=== PATIENT | female | born 1945 ===

== ENCOUNTER 2025-06-06 12:31 | Emergency (ER) | payer MEDICARE, SELFPAY ==
[2025-06-06] VITALS (49 sets, daily range): BP systolic 102–144; BP diastolic 45–75; PULSE 57–70; RESP 12–18; O2SAT 93–98
--- NOTE | ~2025-06-06 | CT_ITS ---
EXAMINATION: CT diagnostic chest wo con DATE: 06/06/2025 18:58 ELECTRONIC INSTALLER INDICATION: Airspace disease TECHNIQUE: Computed tomographic angiography (CTA) of the chest was performed with 100 mL Omnipaque-350 intravenous contrast. The dose-length product was 178.52 mGy-cm. Maximum intensity projection 3D-reconstructions of the aorta and other arteries were constructed by the technologist on a separate workstation. COMPARISON: None. FINDINGS: There is extensive atherosclerosis and ectasia of the aorta. Borderline heart size. No significant pleural or pericardial effusion. No thoracic lymphadenopathy. There is dependent atelectasis. Emphysema. No suspicious pulmonary nodules or masses. No focal nodules are identified corresponding to the area of nodularity seen on chest x-ray. This likely represents prominent nipple shadow. There is atherosclerosis of the aorta and coronary arteries. In the upper abdomen there is an infrarenal abdominal aortic aneurysm partially visualized suggestion of dissection. Aneurysm measures approximately 5.4 cm. Status post cholecystectomy. There is a gastric tube in the gastric lumen. IMPRESSION: 1. Bibasilar dependent atelectasis. 2: Infrarenal abdominal aortic aneurysm measuring 5.4 cm with probable associated dissection. This is incompletely visualized. Reviewed, dictated and finalized at location O. TRONIC INSTALLER IMPRESSION: 1. Bibasilar dependent atelectasis. 2: Infrarenal abdominal aortic aneurysm measuring 5.4 cm with probable associ ated dissection. This is incompletely visualized.
--- NOTE | ~2025-06-06 | CT_ITS ---
CTA chest abdomen pelvis HISTORY:eval AAA with dissection . COMPARISON: None. TECHNIQUE: Following the noncontrasted plate preparer, axial images of the chest abdomen and pelvis were obtained following infusion of 100 cc of Isovue 370. Post- processing on an independent workstation was performed to reconstruct MIP images for evaluation of the thoracic vasculature. FINDINGS: There is no pulmonary embolism, aortic dissection, thoracic aneurysm or pericardial fluid. Enlarged pulmonary trunk measures 3.7 cm in medial to lateral dimension. There is fusiform aneurysmal dilatation of the infrarenal abdominal aorta measuring 5.9 cm in medial to lateral by 5.1 cm in AP dimension. There is a dissection flap seen along the left anterior margin. There is vascular calcification at the origin of the celiac and SMA as well as the renal arteries with no significant stenosis. The iliac arteries are patent. The lung parenchyma is clear. No pleural effusion or pneumothorax is noted. There is no axillary, mediastinal or hilar adenopathy. The liver parenchyma is unremarkable. No intrahepatic mass or ductal dilatation is evident. The gallbladder is unremarkable. The pancreas and spleen are normal in appearance. The adrenal glands are symmetric in size. The kidneys demonstrate symmetric uptake and excretion of contrast. No cystic mass is evident. There is no solid mass. There is no hydronephrosis. There is marked stool retention in the rectum consistent with constipation. There is colonic diverticulosis without evidence of acute diverticulitis. Percutaneous gastric tube is noted and is in place. There are no bowel obstruction. The bladder and rectum are normal. No free intraperitoneal fluid or air is evident. There is no significant retroperitoneal lymphadenopathy. The aorta, visceral vessels and renal arteries demonstrate normal caliber and patency. The lower thoracic and lumbar vertebrae are in normal alignment. IMPRESSION: Aneurysmal dilatation of the infrarenal abdominal aorta measuring up to 5.9 cm with questionable dissection flap extending along the left anterior margin. There is no hemodynamically significant stenosis. Enlarged pulmonary trunk is noted measuring 3.7 cm. There is no pulmonary embolism, aortic dissection, pericardial fluid or thoracic aneurysm. There is constipation noted. All CT scans at this facility are performed using low dose modulation techniques as appropriate to perform exam including the following: automated exposure control; use of iterative reconstruction technique; adjustment of the mA and/or kV according to patient size (this includes techniques or standardized protocols for targeted exams where dose is matched to indication/reason for exam). Reviewed, dictated and finalized at location S. APEUTIC RADIOLOGIST IMPRESSION: Aneurysmal dilatation of the infrarenal abdominal aorta measuring up to 5.9 cm with questionable dissection flap extending along the left anterior margin. The re is no hemodynamically significant stenosis. Enlarged pulmonary trunk is noted measuring 3.7 cm. There is no pulmonary embolism, aortic dissection, pericardial fluid or thoraci c aneurysm. There is constipation noted. All CT scans at this facility are performed using low dose modulation techniqu es as appropriate to perform exam including the following: automated exposure c ontrol; use of iterative reconstruction technique; adjustment of the mA and/or kV according to patient size (this includes techniques or standardized protocol s for targeted exams where dose is matched to indication/reason for exam).
--- NOTE | ~2025-06-06 | XR_ITS ---
Examination: XR chest 1V portable Clinical History: generalized weakness Comparison: None Technique: Portable AP Findings: Right permacath. Cardiomegaly. Mildly increased interstitial markings. 2 right basilar rounded opacities. No acute bony abnormality. IMPRESSION: 1. Mild interstitial pulmonary edema and/or pneumonitis. 2. Right basilar airspace disease or rounded opacities not excluded. Recommend short interval follow-up x-rays and/or CT chest. Reviewed, dictated and finalized at location R. RAL OFFICE WORKER
--- NOTE | ~2025-06-06 | CT_ITS ---
EXAMINATION: CT brain wo con DATE: 06/06/2025 18:08 INDICATION: Altered mental status TECHNIQUE: Computed tomography (CT) of the head was performed without intravenous contrast. The dose-length product was 605.33 mGy-cm. Automated exposure control and iterative reconstruction technique were employed. COMPARISON: None FINDINGS: There is a geographic area of hypodensity in the right basal ganglia, thalamus and parietal lobe, most likely an acute or subacute infarction. Underlying mass less favored although not excluded. No ventriculomegaly or midline shift. Basilar cisterns are patent. There are scattered moderate pe riventricular and subcortical white matter changes, most likely related to small vessel ischemic disease (microangiopathy). Paranasal sinuses and mastoids are pneumatized. No depressed skull fractures. IMPRESSION: 1. Geographic hypodensity in the right basal ganglia, thalamus and parietal lobe, most likely an acute or subacute infarction. Underlying mass less favored although not excluded. Recommend correlation with MRI with and without contrast.. Reviewed, dictated and finalized at location O. ALES CONSULTANT IMPRESSION: 1. Geographic hypodensity in the right basal ganglia, thalamus and parietal lob e, most likely an acute or subacute infarction. Underlying mass less favored al though not excluded. Recommend correlation with MRI with and without contrast..
--- NOTE | 2025-06-06 12:48 | ECG_ITS ---
Test Date: 2025-06-06 13:05:46 Measurements Intervals [place] Rate: 57 P: 47 MD: 161 QRS: 0 QRSD: 89 T: 46 QT: 441 QTc: 430 Interpretive Statements SINUS BRADYCARDIA No previous ECG available for comparison Electronically Signed On 06-06-2025 13:36:41 STEEL ERECTING PUSHER by Tra Kincaid M.D.
[2025-06-06 13:04] LABS: Hematocrit 27.1 % (37.0-47.0); Hemoglobin 8.5 g/dL (12.0-15.0); Immature Granulocyte Percent A 0.7 % (0-0.5); Lymphocytes Absolute Auto 1.77 K/mm3 (0.9-3.2); Mean Corpuscular HGB Conc 31.4 g/dl (32-36); Mean Corpuscular Hemoglobin 33.2 pg (26-34); Mean Corpuscular Volume 105.9 fl (80-100); Nucleated Red Blood Cells Absolute Auto 0.000 K/mm3 (0.0-0.012); Nucleated Red Blood Cells Perc 0.0 % (0.0-0.2); Platelet Count Result 232 k/mm3 (150-375); Red Blood Count 2.56 M/mm3 (4.2-5.4); White Blood Count 6.8 K/mm3 (4.5-10.0)
[2025-06-06 13:23] LABS: Alanine Aminotransferase 68 U/L (6-35); Albumin Level 3.4 g/dL (3.5-5.1); Alkaline Phosphatase 96 U/L (38-126); Anion Gap 6 mmol/L (4-12); Aspartate Amino Transferase 33 U/L (14-36); Bilirubin,Total 0.5 mg/dL (0.2-1.3); Blood Urea Nitrogen 34 mg/dL (7-17); Calcium 8.2 mg/dL (8.4-10.2); Carbon Dioxide 31 mmol/L (22-30); Chloride 98 mmol/L (98-107); Estimated Glomerular Filt Rate 17; Glucose 96 mg/dL (65-110); Potassium 4.0 mmol/L (3.4-5.0); Sodium 135 mmol/L (137-145); Total Protein 6.0 g/dL (6.3-8.2)
[2025-06-06 13:40] LABS: Macrocytosis 1+ (NORMAL); Ovalocytes 1+
[2025-06-06 13:41] LABS: Anisocytosis 1+; Schistocytes None Seen
[2025-06-06 14:16] LABS: Add Urine Microscopic? YES; Appearance Urine Clear (Clear); Glucose Urine UA Negative (Negative); Leukocyte Esterase Ur Trace LEU/UL (Negative); Nitrate Urine Negative (Negative); Non Pathogenic Casts 0-2; Specific Grav Ur 1.006 (1.001-1.035)
--- NOTE | 2025-06-06 16:18 | PC.NURSE ---
Pt was wanting to call her daughter, but pt's cell phone locked out due to pt not remembering passcode. This RN called pt's daughter and updated her on current results/status. Daughter provided passcode to pt's phone, RN reminded pt of this and RN charged pt's phone as well. Daughter, Yolette, wants to be called with any updates. Pt continues to deny any complaints, call light in reach, pt demonstrates use of call light.
--- NOTE | 2025-06-06 18:43 | ED.GENADULT ---
HPI - General Adult General Chief complaint: Weakness Stated complaint: weakness Time Seen by Provider: 06/06/25 17:06 History of Present Illness HPI narrative: 80-year-old female presenting via EMS from [facility] with weakness and lethargy. Patient states she was feeling very tired and could not stay awake. 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 Patient denies chest pain, shortness of breath, abdominal pain, fevers/chills. Related Data Home Medications ?Medication ?Instructions ?Recorded ?Confirmed ?Last Taken ?Type acetaminophen 325 mg capsule 650 mg feeding tube Q6H PRN fever 05/25/25 05/28/25 Unknown History or pain albuterol sulfate 90 mcg/actuation 2 puff inhalation Q4H PRN 05/25/25 05/25/25 Unknown History aerosol inhaler (Ventolin HFA) shortness of breath or wheezing budesonide-formoterol HFA 80 2 puff inhalation Q12H 05/25/25 05/28/25 Unknown History mcg-4.5 mcg/actuation aerosol inhaler carvedilol 25 mg tablet 25 mg feeding tube BID 05/25/25 05/25/25 Unknown History diazepam 5 mg tablet (Valium) 5 mg feeding tube DAILY 05/25/25 05/25/25 Unknown History gabapentin 100 mg capsule 100 mg feeding tube HS 05/25/25 05/25/25 Unknown History lidocaine 5 % topical patch 1 patch topical DAILY 05/25/25 05/25/25 Unknown History polyethylene glycol 3350 17 gram 17 g feeding tube DAILY 05/25/25 05/25/25 Unknown History oral powder packet (Miralax) pregabalin 50 mg capsule 50 mg feeding tube TID 05/25/25 05/25/25 Unknown History vitamin B complex-vitamin C-folic 1 tablet feeding tube DAILY 05/25/25 05/25/25 Unknown History acid 0.8 mg tablet (Renal Vitamin) Allergies Allergy/AdvReac Type Severity Reaction Status Date / Time acetaminophen (From Vicodin) Allergy Intermediate Vomiting Verified 05/25/25 16:09 hydrocodone (From Vicodin) Allergy Intermediate Vomiting Verified 05/25/25 14:49 aspirin Allergy Mild GI Verified 05/25/25 14:49 discomfort naproxen (From Aleve) Allergy Mild Rash Verified 05/25/25 14:49 NSAIDS (Non-Steroidal Allergy Mild Rash Verified 05/25/25 14:49 Anti-Inflamma Pdbvarz-TLX-IgP Reductase Allergy Mild GI Verified 05/25/25 14:49 Inhibitor discomfort amlodipine base AdvReac Intermediate Hypertensio Uncoded 05/25/25 14:49 n Review of Systems Review of Systems: All systems reviewed & are unremarkable except as noted in HPI and below PMFSH Past Medical History Medical History (Updated 06/07/25 @ 01:48 by DESTIN Sorenson) Anemia in chronic kidney disease, 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, on chronic dialysis COPD (chronic obstructive pulmonary disease) Gait abnormality Neuropathy HTN (hypertension) Surgical History Surgical History (Updated 05/27/25 @ 09:23 by Manuel Stark MD) S/P ACL reconstruction S/P dialysis catheter insertion S/P percutaneous endoscopic gastrostomy (PEG) tube placement S/P laparoscopic cholecystectomy S/P cervical spinal fusion Family History Family History (Updated 05/27/25 @ 09:25 by Manuel Stark MD) Mother Heart disease Father Parkinson disease Social History Social History Tobacco type: cigarettes Alcohol intake: never Substance use: never Substance use type: does not use Lack of Transportation: No Lack of Food: Never True Current Housing: I Have Housing Concerned About Future Housing: No Difficulty Paying Gas/Electric Bills: No Difficulty Paying for Meds: No Currently Unemployed: No Education: High School Diploma/GED Difficulty w/ Childcare or Family Care: No Spiritual care concerns: No Exam Narrative: GENERAL: Well-appearing, well-nourished, and in no acute distress. HEAD: Normocephalic, atraumatic. EYES: PERRLA and EOMI. ENT: Nares clear, no rhinorrhea or epistaxis. Mucous membranes moist. Oropharynx without tonsillar hypertrophy exudate or other lesions. Bilateral TMs pearly lee non-bulging NECK: Supple. No adenopathy or masses. No carotid bruits or JVD CHEST: Clear to auscultation. No respiratory distress. No wheezes rales or rhonchi HEART: Regular rate and rhythm. No murmur heard. Normal peripheral pulses. ABDOMEN: Soft, nontender, nondistended, normal active bowel sounds. EXTREMITIES: Normal range of motion. No edema. SKIN: Warm, dry, no rash. NEURO: Left side hemiparesis. Alert and oriented x3. Right side strength 5/5 and full ROM. Unilateral finger to nose intact. PSYCH: Normal mood and affect Course Vital Signs Vital signs: Vital Signs Pulse Rate 57 L 06/06/25 12:32 Respiratory Rate 14 06/06/25 12:32 Blood Pressure 105/55 L 06/06/25 12:32 Pulse Oximetry 97 06/06/25 12:32 Oxygen Delivery Nasal Cannula 06/06/25 12:32 Oxygen Flow Rate 2 06/06/25 12:32 Pulse Rate 64 06/06/25 17:03 Respiratory Rate 14 06/06/25 17:03 Blood Pressure 124/56 L 06/06/25 17:03 Pulse Oximetry 94 06/06/25 14:30 Oxygen Delivery Nasal Cannula 06/06/25 12:32 Oxygen Flow Rate 2 06/06/25 12:32 Medical Decision Making MDM Narrative Medical decision making narrative: 80-year-old female presenting via EMS from [facility] with weakness and lethargy. Patient states she was feeling very tired and could not stay awake earlier so the facility called EMS. Facility also noted that her oxygen saturations have been dropping intermittently. 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 Patient denies chest pain, shortness of breath, abdominal pain, fevers/chills. Upon my initial assessment, patient endorses that she is feeling much better and no longer expresses fatigue. Patient's right-sided exam was within normal limits including 5/5 strength and full range of motion. No facial droop. Labs show macrocytic anemia and patient endorses that this is chronic and being monitored closely by her facility. CT brain demonstrated the previous infarct but no new CVA. CXR ordered for intermittent oxygen desaturations revealed mild interstitial pulmonary edema and/or pneumonitis and right basilar airspace disease or rounded opacities not excluded with recommendation for f/u imaging. CT chest demonstrated bibasilar dependent atelectasis and an infrarenal abdominal aortic aneurysm measuring 5.4 cm with probable associated dissection. CTA demonstrated aneurysmal dilatation of the infrarenal abdominal aorta measuring up to 5.9 cm with questionable dissection flap extending along the left anterior margin with no hemodynamically significant stenosis; an enlarged pulmonary trunk is noted measuring 3.7 cm; and there is no pulmonary embolism, aortic dissection, pericardial fluid or thoracic aneurysm. Patient was aware of the aneurysm and follows with Dr. Terrell Reyes at [facility] for monitoring. Contacted [facility] vascular surgery and spoke to the on-call physician Dr. Tracy who stated that the patient did not need vascular surgery at this time. Then spoke to the hospitalist Dr. Weiner at [facility] hospital who accepted the patient. Patient remained stable throughout her stay. She is sitting comfortably and being monitored closely until transfer. Medical Records Medical records reviewed: Yes I reviewed the external patient's medical records. Vital Signs Vital Signs: Vital Signs Pulse Rate 57 L 06/06/25 12:32 Respiratory Rate 14 06/06/25 12:32 Blood Pressure 105/55 L 06/06/25 12:32 Pulse Oximetry 97 06/06/25 12:32 Oxygen Delivery Nasal Cannula 06/06/25 12:32 Oxygen Flow Rate 2 06/06/25 12:32 Pulse Rate 64 06/06/25 17:03 Respiratory Rate 14 06/06/25 17:03 Blood Pressure 124/56 L 06/06/25 17:03 Pulse Oximetry 94 06/06/25 14:30 Oxygen Delivery Nasal Cannula 06/06/25 12:32 Oxygen Flow Rate 2 06/06/25 12:32 Lab Data Lab results reviewed: Yes I reviewed the patient's lab results. 06/06/25 12:59 06/06/25 12:59 Labs: Lab Results 06/06/25 06/06/25 Range/Units 12:59 13:45 WBC 6.8 (4.5-10.0) K/mm3 RBC 2.56 L (4.2-5.4) M/mm3 Hgb 8.5 L (12.0-15.0) g/dL Hct 27.1 L (37.0-47.0) % MCV 105.9 H (80-100) fl MCH 33.2 (26-34) pg MCHC 31.4 L (32-36) g/dl RDW 18.5 H (11.5-14.5) % Plt Count 232 (150-375) k/mm3 MPV 10.3 (7.4-10.4) fl Immature Gran % (Auto) 0.7 H (0-0.5) % Neut % (Auto) 54.2 (45.5-73.1) % Lymph % (Auto) 26.2 (18.3-44.2) % [place] % (Auto) 18.0 H (2.6-8.5) % Eos % (Auto) 0.6 (0-4.4) % Baso % (Auto) 0.3 (0.2-1.2) % Lymph # (Auto) 1.77 (0.9-3.2) K/mm3 [place] # (Auto) 1.2 H (0.1-0.6) K/mm3 Eos # (Auto) 0.0 (0-0.3) K/mm3 Baso # (Auto) 0.0 (0.0-0.1) K/mm3 Abs Immat Gran (auto) 0.05 H (0.00-0.031) K/mm3 Absolute Neuts (auto) 3.7 (1.3-6.7) K/mm3 Absolute Nucleated RBC 0.000 (0.0-0.012) K/mm3 Band Neutrophils % Not Reportable Nucleated RBC % 0.0 (0.0-0.2) % Platelet Estimate Adequate (Adequate) Anisocytosis 1+ Macrocytosis 1+ (NORMAL) Ovalocytes 1+ Schistocytes None seen Sodium 135 L (137-145) mmol/L Potassium 4.0 (3.4-5.0) mmol/L Chloride 98 (98-107) mmol/L Carbon Dioxide 31 H (22-30) mmol/L Anion Gap 6 (4-12) mmol/L BUN 34 H D (7-17) mg/dL Creatinine 2.65 H (0.7-1.0) mg/dL Estim Creat Clear Calc Not Reportable Estimated GFR 17 L (59 - ) Glucose 96 (65-110) mg/dL Calcium 8.2 L (8.4-10.2) mg/dL Total Bilirubin 0.5 (0.2-1.3) mg/dL AST 33 (14-36) U/L ALT 68 H (6-35) U/L Alkaline Phosphatase 96 (38-126) U/L Total Protein 6.0 L (6.3-8.2) g/dL Albumin 3.4 L (3.5-5.1) g/dL Urine Color Yellow (Yellow) Urine Appearance Clear (Clear) Urine pH 8.5 (5.0-9.0) Ur Specific [place] 1.006 (1.001-1.035) Urine Protein 2+ H (Negative) mg/dL Urine Glucose (UA) Negative (Negative) mg/dL Urine Ketones Negative (Negative) mg/dL Ur Blood (Man) Negative (Negative) Urine Nitrate Negative (Negative) Urine Bilirubin Negative (Negative) Urine Urobilinogen 0.2 (<2.0) mg/dL Leukocyte Esterase Rfl Trace H (Negative) WINNIE/UL Urine RBC 0-2 (0-2) /hpf Urine WBC 0-5 (0-3) /hpf Ur Squamous Epith Cells Occasional (Few) /hpf Urine Bacteria None seen /hpf Urine Casts 0-2 Imaging Data Attestation: I personally reviewed and interpreted this imaging study as follows: Radiologist's impression: ITS Impressions Chest X-Ray 06/06/25 13:32 IMPRESSION: 1. Mild interstitial pulmonary edema and/or pneumonitis. 2. Right basilar airspace disease or rounded opacities not excluded. Recommend short interval follow-up x-rays and/or CT chest. Head CT 06/06/25 18:17 IMPRESSION: 1. Geographic hypodensity in the right basal ganglia, thalamus and parietal lobe, most likely an acute or subacute infarction. Underlying mass less favored although not excluded. Recommend correlation with MRI with and without contrast.. Chest CT 06/06/25 18:58 IMPRESSION: 1. Bibasilar dependent atelectasis. 2: Infrarenal abdominal aortic aneurysm measuring 5.4 cm with probable associated dissection. This is incompletely visualized. Chest/Abdomen/Pelvis CTA 06/06/25 20:28 IMPRESSION: Aneurysmal dilatation of the infrarenal abdominal aorta measuring up to 5.9 cm with questionable dissection flap extending along the left anterior margin. There is no hemodynamically significant stenosis. Enlarged pulmonary trunk is noted measuring 3.7 cm. There is no pulmonary embolism, aortic dissection, pericardial fluid or thoracic aneurysm. There is constipation noted. All CT scans at this facility are performed using low dose modulation techniques as appropriate to perform exam including the following: automated exposure control; use of iterative reconstruction technique; adjustment of the mA and/or kV according to patient size (this includes techniques or standardized protocols for targeted exams where dose is matched to indication/reason for exam). Discharge Plan Discharge Clinical Impression: Abdominal aortic aneurysm Patient Disposition: Acute Care Hospital Condition: Stable Patient Language: Korean Prescriptions: No Action carvedilol 25 mg tablet 25 mg feeding tube BID Rx Instructions: must administer with a meal/food gabapentin 100 mg capsule 100 mg feeding tube HS albuterol sulfate [Ventolin HFA] 90 mcg/actuation HFA aerosol inhaler 2 puff inhalation Q4H PRN (Reason: shortness of breath or wheezing) diazepam [Valium] 5 mg tablet 5 mg feeding tube DAILY acetaminophen 325 mg capsule 650 mg feeding tube Q6H PRN (Reason: fever or pain) budesonide-formoterol 80-4.5 mcg/actuation HFA aerosol inhaler 2 puff inhalation Q12H lidocaine 5 % adhesive patch,medicated 1 patch topical DAILY Rx Instructions: leave on most painful area for up to 12 hrs polyethylene glycol 3350 [Miralax] 17 gram powder in packet 17 g feeding tube DAILY pregabalin 50 mg capsule 50 mg feeding tube TID Renal Vitamin 0.8 mg tablet 1 tablet feeding tube DAILY Follow-up/Referrals: PHYSICIAN NOT ON STAFF,NONSTAFF [Primary Care Provider]
--- NOTE | 2025-06-06 21:10 | PC.NURSE ---
This RN called pt's daughter, Yolette, and updated daughter on plan to transfer to [facility] for vascular consult. Pt informed as well. Pt continues to deny any pain, remains A&Ox4, on room air. Additional labs obtained and sent. Pt reports her vascular doctor is at [facility] and they have been watching her aneurysm previously for growth. Call light in reach.
--- OUTSIDE RECORDS SUMMARY | 2025-06-06 21:12 | XMS_ITS | Encounter Summary ---
Author Organization [facility] Address [address] [place] [address] Care Team Providers Care Geriatric Physician Name Role Phone Hermelindo Lazar MD Unavailable Odin YEUNG MD, Kevin Nunez Primary Care Provider [phone] Kasie Brown RN Unavailable [phone] Marc CURIEL MD, Ulysses Guerrero Primary Care Provider + Ashleigh Rouse MD Primary Care Provider [phone] Odin YEUNG MD, Francis G Primary Care Provider [phone] Ashleigh Rouse MD Primary Care Provider [phone] Tana Wagner MD Primary Care Provider [phone] Reason for Visit * Reason Onset Date Comments Surgery Scheduling 07/17/2019 Surgery Scheduling 07/17/2019 message relay ed Encounter Details Date Type Department Care Team (Late st Contact Info) Description 07/17/2019 Telephone [facility] Internal Medicine [address] [facility] [address] [place] [address] Kevin Newby III, MD [address] [id number] Surgery Scheduling; Surgery Scheduling (message relayed) Social History Tobacco Use Types Packs/Day Years Used Date Smoking Tobacco: Every Day Cigarettes 0.5 50 Smokeless Tobacco: Never Alcohol Use Standard Drinks/Week Comments Yes 0 (1 standard drink = 0.6 oz pur e alcohol) social AUDIT-C Answer Date Recorded Frequency of Alcohol Consumption Never 07/19/2019 Average Number of Drinks Not on file 019 Frequency of Binge Drinking Not on file 07/01 Comments No Sex and Gender Information Value Date Recorded Sex Assigned at Not on file Legal Sex Female 9:43 AM CDT Gender Identity Not on file Sexual Orientation Not on file documented as of this encounter Functional Status documented as of this encounter Miscellaneous Notes * Telephone Encounter - Souleymane Krishnamurthy - 07/17/2019 2:57 PM CST Contact made w/Liz in [facility] General surgery, message below provided: Message from Dr. Newby It looks like I have an appointment with patient tomorrow. I will discuss with her then. I am unable to recommend for or against performing bronchoscopy for these lesions. I will place a referral to supply chain procurement manager who can make such a determination. ?? Much thanks, ?? SUNI Hill verbalized understanding and stated she would let the surgeon know TATION MAINTENANCE TECHNICIAN * Telephone Encounter - Kevin Newby III, MD - 07/17/2019 8:46 AM CST It looks like I have an appointment with patient tomorrow. I will discuss with her then. I am unable to recommend for or against performing bronchoscopy for these lesions. I will place a referral to supply chain procurement manager who can make such a determination. Much thanks, GW TATION MAINTENANCE TECHNICIAN * Telephone Encounter - Souleymane Krishnamurthy - 07/17/2019 8:15 AM CST Liz pendleton/[facility] Surgery called on behalf of Dr. Kennedy Richardson to see if the provider wanted a Psychiatric Tech to per a bronchoscope during the laparoscopic colosectomy. Liz stated that they are looking to schedule the surgery for August or September, but wanted to confirm with the provider r egarding the bronchoscope before scheduling. Liz provided call back number [phone] Message routed to provider for review and assistance TATION MAINTENANCE TECHNICIAN documented in this encounter Plan of Treatment Upcoming Encounters Date Type Department Care Team (Late st Contact Info) Description 07/01/2025 1:30 PM SUBSTATION MAINTENANCE TECHNICIAN Office Visit [facility] - Neurology [address] [facility] [place] [phone] Liz Zelaya PA-C [address] [facility] [address] [place] [phone] 07/03/2025 1:00 PM SUBSTATION MAINTENANCE TECHNICIAN Office Visit [facility] - Orthopedic Surgery [address] [facility] [place] [phone] Humberto Carlton MD [address] [place] [address] documented as of this encounter Visit Diagnoses Not on filedocumented in this encounter Additional Health Concerns Infection Onset Date Last Indicated Resolved Time COVID-19 Under Investigation 06/01/2024 06/01/2024 06/01/2024 8:23 PM CDT documented as of this encounter Care Teams Geriatric Physician Relationship Specialty Start Date End Date Kevin Newby III, MD [address] [facility] [address] [place] [phone] PCP - General 06/05/19 07/27/20 [place] [address] [place] [address] [address] [facility] [place] [address] PCP - General Student Resident 07/28/20 10/14/20 Ashleigh Rouse MD [address] [place] [address] PCP - General 10/15/20 03/25/21 Kevin Newby III, MD [address] [place] [address] PCP - General 03/26/21 07/16/21 Ashleigh Rouse MD [address] [place] [address] PCP - General Internal Medicine Geriatric Medicine 07/17/21 08/24/23 Tana Wagner MD [address] [place] [address] PCP - General Internal Medicine Geriatric Medicine 08/25/23 Hermelindo Lzaar MD [address] [phone] Obstetrics and Gynecology 01/30/19 Kasie Brown, ROCAEL Livestock FarmworkerSubstation Maintenance Technician 08/16/19 documented as of this encounter
--- OUTSIDE RECORDS SUMMARY | 2025-06-06 21:12 | XMS_ITS | Clinical Summary ---
Author Organization [facility] Administrative Offices Address [address] [place] [phone] Care Team Providers Care Service Parts Driver Name Role Phone Terrell Park MD Primary Care Provider [phone] Social History Tobacco Use Types Packs/Day Years Used Date Smoking Tobacco: Never Assessed Comments Unknown Sex and Gender Information Value Date Recorded Sex Assigned at Not on file Legal Sex Female 1:05 PM CDT Gender Identity Not on file Sexual Orientation Not on file Plan of Treatment Health Maintenance Due Date Last Done Comments DTAP/TDAP/TD VACCINES (1 - Tdap) 1964 ZOSTER VACCINE (1 of 2) 1995 OSTEOPOROSIS SCREENING 2010 RSV VACCINE (60+ or ) (1 - 1-dose 75+ series) 2020 INFLUENZA VACCINE (#1) 2025 8, 06/13/2015, 06/11/2014, Additional history exists PNEUMOCOCCAL VACCINE 50+ YEARS Completed 03/07/2019 , 04/18/2012 Insurance [employer] PPO [facility] Care Teams Service Parts Driver Relationship Specialty Start Date End Date Terrell Park MD [address] [place] [address] PCP - General Internal Medicine 04/11/19
--- OUTSIDE RECORDS SUMMARY | 2025-06-06 21:12 | XMS_ITS | Encounter Summary ---
Author Organization [facility] Address [address] [facility] [place] [address] Care Team Providers Care Rug Dyer Helper Name Role Phone Hermelindo Lazar MD Unavailable [phone] Kasie Brown RN Unavailable [phone] Tana Wagner MD Primary Care Provider [phone] Reason for Visit * Reason Onset Date Comments Question 06/05/2025 Encounter Details Date Type Department Care Team (Late st Contact Info) Description 06/05/2025 Telephone Transitional Care at [address] [address] Rosette Moore MA Question Social History Tobacco Use Types Packs/Day Years Used Date Smoking Tobacco: Every Day Cigarettes 1 63 Smokeless Tobacco: Never Alcohol Use Standard Drinks/Week Comments Not Currently 0 (1 standard drink = 0.6 oz pur e alcohol) quit PHQ-2 Answer Date Recorded Patient Health Questionnaire-2 Score 0 05/19/2025 PRAPARE - Transportation Answer Date Re corded In the past 12 months, has l ack of transportation kept you from medical appointments or from getting medications? No 01/30 In the past 12 months, has l ack of transportation kept you from meetings, work, or from getting things needed for daily living? No 02/24/2025 Housing Stability Vital Sign Answer Bishop e Recorded In the last 12 months, was t here a time when you were not able to pay the mortgage or rent on time? No 02/24/2025 In the past 12 months, how m any times have you moved where you were living? 0 02/24/2025 At any time in the past 12 m [facility], were you homeless or living in a halfway (including now)? No 02/24/2025 AUDIT-C Answer Date Recorded Q1: How often do you have a drink containing alcohol? Never 05/14/2025 Q2: How many drinks containi ng alcohol do you have on a typical day when you are drinking? Patient does not drink Q3: How often do you have si x or more drinks on one occasion? Never 05/14/2025 Overall Financial Resource Strain (CARDIA) Answe r Date Recorded How hard is it for you to pa y for the very basics like food, housing, medical care, and heating? Not very hard 05/14/2025 [facility] - Occupational Stress Questionnaire Answer Date Recorded Do you feel stress - tense, restless, nervous, or anxious, or unable to sleep at night because your mind is troubled all the time - these days? Not at all 05/14/2025 Hunger Vital Sign Answer Date Recorded Within the past 12 months, y ou worried that your food would run out before you got the money to buy more. Never true 05/14/20 25 Within the past 12 months, t he food you bought just didn't last and you didn't have money to get more. Never true 05/14/2025 PRAPARE - Transportation Answer Date Re corded In the past 12 months, has l ack of transportation kept you from medical appointments or from getting medications? No 05/01 In the past 12 months, has l ack of transportation kept you from meetings, work, or from getting things needed for daily living? No 05/14/2025 Housing Stability Vital Sign Answer Bishop e Recorded In the last 12 months, was t here a time when you were not able to pay the mortgage or rent on time? No 05/14/2025 In the past 12 months, how m any times have you moved where you were living? 0 05/14/2025 At any time in the past 12 m [facility], were you homeless or living in a halfway (including now)? 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 Answer Date of Assessment Author No 05/14/2025 6:55 PM JERSEYT Gloria Brian RN * Is person blind or have serious difficulty seeing? Answer Date of Assessment Author No 05/14/2025 6:55 PM Gloria Farias RN * Does person have serious difficulty walking/climbing stairs? Answer Date of Assessment Author No 05/14/2025 6:55 PM Gloria Farias RN * Does person have difficulty dressing/bathing? Answer Date of Assessment Author No 05/14/2025 6:55 PM Gloria Farias RN * Does person have difficulty doing errands alone? Answer Date of Assessment Author No 05/14/2025 6:55 PM Gloria Farias RN documented as of this encounter Mental Status * Does person have difficulty concentrating/remembering/making decisions? Answer Entry Date Author No 05/14/2025 6:55 PM Gloria Farias RN documented in this encounter Miscellaneous Notes * Telephone Encounter - Rosette Moore MA - 06/05/2025 9:49 AM DRAWING FRAME TENDER Called [facility] to check admission status and discharge plan of patient that received BRIDGE referral. Spoke with CAROLINE who stated patient is to discharge 06/17/25. ING FRAME TENDER documented in this encounter Plan of Treatment Upcoming Encounters Date Type Department Care Team (Late st Contact Info) Description 07/01/2025 1:30 PM DRAWING FRAME TENDER Office Visit [facility] - Neurology [address] [place] [address], [place] [address] Liz Zelaya PA-C [address] [facility] [address] [place] [phone] 07/03/2025 1:00 PM DRAWING FRAME TENDER Office Visit [facility] - Orthopedic Surgery [address] [place] [phone] Humberto Carlton MD [address] [place] [address] documented as of this encounter Goals Goal Patient Goal Type Associated Problems Recent Progress Patient-Stated? Author Medication Management General No Whitney Kan, ROCAEL Note: Expected end date: ongoing Interventions: Take all medications as prescribed Let your doctor know right away about any changes in your medications Make sure to request a refill of your medication at least one week prior to your last dose Medication Management General No Whitney Kan, RN Note: Expected end date: ongoing Interventions: Take all medications as prescribed Let your doctor know right away about any changes in your medications Make sure to request a refill of your medication at least one week prior to your last dose Medication Management General No Whitney Kan, RN Note: Expected end date: ongoing Interventions: Take all medications as prescribed Let your doctor know right away about any changes in your medications Make sure to request a refill of your medication at least one week prior to your last dose Medication Management General No Whitney Kan, RN Note: Expected end date: ongoing Interventions: Take all medications as prescribed Let your doctor know right away about any changes in your medications Make sure to request a refill of your medication at least one week prior to your last dose documented as of this encounter Visit Diagnoses Not on filedocumented in this encounter Care Teams Rug Dyer Helper Relationship Specialty Start Date End Date Tana Wagner MD [address] [place] [address] PCP - General Internal Medicine Geriatric Medicine 08/25/23 Hermelindo Lazar MD [address] [facility] [address] [place] [address] Obstetrics and Gynecology 01/30/19 Kasie Brown, RN Motorcycle TechnicianWood Heel Fitter Machine 08/16/19 documented as of this encounter
--- OUTSIDE RECORDS SUMMARY | 2025-06-06 21:12 | XMS_ITS | Encounter Summary ---
Author Organization [facility] Address [address] [facility] [place] [address] Care Team Providers Care Flower Shop Laborer/Designer Name Role Phone Hermelindo Lazar MD Unavailable [phone] Odin YEUNG MD, Kevin Nunez Primary Care Provider [phone] Kasie Brown RN Unavailable [phone] Marc CURIEL MD, Ulysses Guerrero Primary Care Provider + Ashleigh Rouse MD Primary Care Provider Odin YEUNG MD, Francis G Primary Care Provider [phone] Ashleigh Rouse MD Primary Care Provider [phone] Tana Wagner MD Primary Care Provider [phone] Reason for Visit * Reason Onset Date Comments Medication Issue 06/25/2019 hygroton Medication Issue 07/04/2019 message relayed Encounter Details Date Type Department Care Team (Late st Contact Info) Description 06/25/2019 Telephone [facility] General Internal Medicine [address] [address] Kevin Newby III, MD [address] [phone] Medication Issue (hygroton); Medication Issue (message relayed) Social History Tobacco Use Types Packs/Day Years Used Date Smoking Tobacco: Every Day Cigarettes 0.5 50 Smokeless Tobacco: Never Alcohol Use Standard Drinks/Week Comments Yes 0 (1 standard drink = 0.6 oz pur e alcohol) social Comments No Sex and Gender Information Value Date Recorded Sex Assigned at Not on file Legal Sex Female 9:43 AM CDT Gender Identity Not on file Sexual Orientation Not on file documented as of this encounter Miscellaneous Notes * Telephone Encounter - Souleymaen Krishnamurthy - 07/04/2019 4:22 PM CST Contact made with the pt, message below provided: Message from Dr. Araujo I am covering for Dr. Newby. Please call the patient and let her know that if she isn't tolerating the chlorthalidone, then she should discontinue it. She should continue checking her blood pressure at home and keeping a log. If the patient is having any headaches, chest pain, dizziness when her blood pressure is elevated after she stops taking the chlorthalidone, then she should go to the emergency department. She should definitely keep her upcoming appointment ??Dr. Newby on 07/18. If she needsto be seen sooner, she can come to the acute care clinic. Thanks! Pt verbalized she has some dizziness, and chest pain but reports she has gall stones, and is takinga medication that causes dizziness. Pt states she doesn't feel like she needs to go to the ED, but will if her top number goes above 200, reports that it hasn't been that high, and the bottom number has been between 94-101, pulse is good. Closing statement provided DRY FINISHER * Telephone Encounter - Marilyn Araujo DO - 07/03/2019 6:52 PM CST Will advise patient to come stop chlorthalidone. Will continue to monitor BP. Recommend coming to acute care clinic if patient is having symptoms with high blood pressure. Patient is scheduled to seeDr. Newby on 07/18. DRY FINISHER * Telephone Encounter - Souleymane Krishnamurthy - 06/25/2019 3:54 PM CST Pt called to inform the provider that the Hygroton is giving her headaches, makes her pee a lot, and has turned her bowel movements into water. Caller states she has been taking it for 3-4 days nowand her bp was 163/101 today, 176/98 yesterday, and 162/100 that day before that. Pt provided call back number [phone] Message routed to provider for review and assistance DRY FINISHER documented in this encounter Plan of Treatment Upcoming Encounters Date Type Department Care Team (Late st Contact Info) Description 07/01/2025 1:30 PM FOUNDRY FINISHER Office Visit [facility] - Neurology [address] [facility], [place] [phone] Liz Zelaya PA-C [address] [facility] [address] [place] [phone] 07/03/2025 1:00 PM FOUNDRY FINISHER Office Visit [facility] - Orthopedic Surgery [address] [facility] [place] [phone] Humberto Carlton MD [address] [facility] [address] [place] [address] documented as of this encounter Visit Diagnoses Not on filedocumented in this encounter Additional Health Concerns Infection Onset Date Last Indicated Resolved Time COVID-19 Under Investigation 06/01/2024 06/01/2024 06/01/2024 8:23 PM CDT documented as of this encounter Care Teams Flower Shop Laborer/Designer Relationship Specialty Start Date End Date Kevin Newby III, MD [address] [place] [phone] PCP - General 06/05/19 07/27/20 Ulysses Tran II, MD [address] [facility] [place] [address] PCP - General Student Resident 07/28/20 10/14/20 Ashleigh Rouse MD [address] [place] [address] PCP - General 10/15/20 03/25/21 Kevin Newby III, MD [address] [place] [address] PCP - General 03/26/21 07/16/21 Ashleigh Rouse MD [address] OF [facility] [place] [address] PCP - General Internal Medicine Geriatric Medicine 07/17/21 08/24/23 Tana Wagner MD [address] [place] [address] PCP - General Internal Medicine Geriatric Medicine 08/25/23 Hermelindo Lazar MD [address] [facility] [address] [place] [address] Obstetrics and Gynecology 01/30/19 Kasie Brown, ROCAEL Marble FinisherShoe Laster 08/16/19 documented as of this encounter
--- OUTSIDE RECORDS SUMMARY | 2025-06-06 21:12 | XMS_ITS ---
Author Organization [facility] Address [address] [facility] [place] [address] Care Team Providers Care Business Systems Manager Name Role Phone Hermelindo Lazar MD Unavailable [phone] Kasie Brown RN Unavailable [phone] Tana Wagner MD Primary Care Provider [phone] Active Problems Problem Noted Date Diagnosed Date Oropharyngeal dysphagia 05/22/2025 Assessment & Plan (05/25/2025 11:53 AM CDT): Plan PT/OT rec acute rehab F/u Neurology OP Keep SBP <160 PEG (placed 10/20) w TF Continuous: Nepro at 40 ml/hr. F/u w ACS for PEG removal when able. Assessment & Plan (05/24/2025 7:21 AM CDT): Plan PT/OT rec acute rehab F/u Neurology OP Keep SBP <160 PEG (placed 10/20) w TF Continuous: Nepro at 40 ml/hr. F/u w ACS for PEG removal when able. Assessment & Plan (05/23/2025 2:21 PM CDT): Plan PT/OT rec acute rehab F/u Neurology OP Keep SBP <160 PEG (placed 10/20) w TF Continuous: Nepro at 40 ml/hr. F/u w ACS for PEG removal when able. Assessment & Plan (05/22/2025 12:10 PM CDT): Plan PT/OT rec acute rehab F/u Neurology OP Keep SBP <160 PEG (placed 10/20) w TF Continuous: Nepro at 40 ml/hr. F/u w ACS for PEG removal when able. Simple chronic bronchitis 05/22/2025 Assessment & Plan (05/25/2025 11:53 AM CDT): Continue home symbicort F/u Pulm OP for PFT Tobacco cessation discussed Assessment & Plan (05/24/2025 7:21 AM CDT): Continue home symbicort F/u Pulm OP for PFT Tobacco cessation discussed Assessment & Plan (05/23/2025 2:21 PM CDT): Continue home symbicort F/u Pulm OP for PFT Tobacco cessation discussed Assessment & Plan (05/22/2025 12:10 PM CDT): Continue home symbicort F/u Pulm OP for PFT Tobacco cessation discussed Weakness 05/14/2025 Assessment & Plan (05/25/2025 11:53 AM CDT): Plan PT/OT rec acute rehab F/u Neurology OP Keep SBP <160 PEG (placed 10/20) w TF Continuous: Nepro at 40 ml/hr. F/u w ACS for PEG removal when able. Assessment & Plan (05/24/2025 7:21 AM CDT): Plan PT/OT rec acute rehab F/u Neurology OP Keep SBP <160 PEG (placed 10/20) w TF Continuous: Nepro at 40 ml/hr. F/u w ACS for PEG removal when able. Assessment & Plan (05/23/2025 2:21 PM CDT): Plan PT/OT rec acute rehab F/u Neurology OP Keep SBP <160 PEG (placed 10/20) w TF Continuous: Nepro at 40 ml/hr. F/u w ACS for PEG removal when able. Assessment & Plan (05/22/2025 12:10 PM CDT): Plan PT/OT rec acute rehab F/u Neurology OP Keep SBP <160 PEG (placed 10/20) w TF Continuous: Nepro at 40 ml/hr. F/u w ACS for PEG removal when able. Brainstem hemorrhage, nontraumatic 05/14/2025 Thalamic hemorrhage 05/14/2025 Assessment & Plan (05/25/2025 11:53 AM CDT): Plan PT/OT rec acute rehab F/u Neurology OP Keep SBP <160 PEG (placed 10/20) w TF Continuous: Nepro at 40 ml/hr. F/u w ACS for PEG removal when able. Assessment & Plan (05/24/2025 7:21 AM CDT): Plan PT/OT rec acute rehab F/u Neurology OP Keep SBP <160 PEG (placed 10/20) w TF Continuous: Nepro at 40 ml/hr. F/u w ACS for PEG removal when able. Assessment & Plan (05/23/2025 2:21 PM CDT): Plan PT/OT rec acute rehab F/u Neurology OP Keep SBP <160 PEG (placed 10/20) w TF Continuous: Nepro at 40 ml/hr. F/u w ACS for PEG removal when able. Assessment & Plan (05/22/2025 12:10 PM CDT): Plan PT/OT rec acute rehab F/u Neurology OP Keep SBP <160 PEG (placed 10/20) w TF Continuous: Nepro at 40 ml/hr. F/u w ACS for PEG removal when able. Cerebral edema 05/14/2025 Assessment & Plan (05/25/2025 11:53 AM CDT): Plan PT/OT rec acute rehab F/u Neurology OP Keep SBP <160 PEG (placed 10/20) w TF Continuous: Nepro at 40 ml/hr. F/u w ACS for PEG removal when able. Assessment & Plan (05/24/2025 7:21 AM CDT): Plan PT/OT rec acute rehab F/u Neurology OP Keep SBP <160 PEG (placed 10/20) w TF Continuous: Nepro at 40 ml/hr. F/u w ACS for PEG removal when able. Assessment & Plan (05/23/2025 2:21 PM CDT): Plan PT/OT rec acute rehab F/u Neurology OP Keep SBP <160 PEG (placed 10/20) w TF Continuous: Nepro at 40 ml/hr. F/u w ACS for PEG removal when able. Assessment & Plan (05/22/2025 12:10 PM CDT): Plan PT/OT rec acute rehab F/u Neurology OP Keep SBP <160 PEG (placed 10/20) w TF Continuous: Nepro at 40 ml/hr. F/u w ACS for PEG removal when able. Acute respiratory failure with hypoxia Slow transit constipation 02/26/2025 Closed fracture of neck of right femur, initial encounter 02/24/2025 Encounter for post surgical wound check 11/28/19 25 ESRD on dialysis 09/02/2024 Assessment & Plan (05/25/2025 11:53 AM CDT): TTS via [facility] Nephrology follow up Assessment & Plan (05/24/2025 7:21 AM CDT): TTS via [facility] Nephrology consulted Assessment & Plan (05/23/2025 2:21 PM CDT): TTS via [facility] Nephrology consulted Assessment & Plan (05/22/2025 7:38 AM CDT): TTS via [facility] Nephrology consulted 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 Essential (primary) hypertension 05/24/2019 Assessment & Plan (05/25/2025 11:53 AM CDT): Continue carvedilol 25mg bid Assessment & Plan (05/24/2025 7:21 AM CDT): Continue carvedilol 25mg bid Assessment & Plan (05/23/2025 2:21 PM CDT): Continue carvedilol 25mg bid Assessment & Plan (05/22/2025 12:10 PM CDT): Continue carvedilol 25mg bid Diverticulosis of colon 05/04/2019 Current Treatment and Therapy Plans No current plan information found. Past Treatment and Therapy Plans No past plan information found. Lifetime Dose Tracking * Chemical Lifetime Dose Automatic Entry Manual Entr y Dose Length Product 1,873.6 mGy-cm 1,873.6 mGy-cm 0 mG y-cm Resolved Problems Problem Noted Date Diagnosed Date Resolved Date Hypoxia 02/24/2025 02/26/2025 Obesity 07/18/2019 07/18/2019 Chest pain 06/11/2019 07/18/2019
--- OUTSIDE RECORDS SUMMARY | 2025-06-06 21:12 | XMS_ITS | Clinical Summary ---
Author Organization [facility] Address [address] [place] [id number] Phone Care Team Providers Care Cover Mat Machine Operator Name Role Phone Terrell Park MD Primary Care Provider [phone] Allergies Active Allergy Reactions Criticality Noted Date Comments Aspirin 05/24/2019 Codeine 05/24/2019 Meperidine 05/24/2019 Levofloxacin 05/24/2019 Naproxen 05/24/2019 Niacin 05/24/2019 Statins 05/24/2019 Hydrocodone-Acetaminophen 05/24/2019 Medications diazePAM (VALIUM) 5 MG tablet Take 5 mg by mouth every 8 (eight) hours if needed for anxiety Active ezetimibe (ZETIA) 10 MG tablet Take 10 mg by mouth 1 (one) time each day Active metoprolol tartrate (LOPRESSOR) 25 MG tablet Take 25 mg by mouth 2 (two) times a day 1/2 tab bid Active glucosamine-cho ndroitin 500-400 MG tablet Take 1 tablet by mouth 2 (two) times a day Active Hyaluronic Acid-Vitamin C (HYALURONIC ACID PO) Take by mouth daily 2 tabs daily Active Misc Natural Products (LUTEIN VISION BLEND PO) Take 24 mg by mouth daily Active Calcium Citrate-Vitamin D 500-400 MG-UNIT chewable tablet Chew 400 mg daily Active Vitamin Mixture (GERMAN-C PO) Take 500 mg by mouth 2 (two) times a day Active Turmeric Curcumin 500 MG capsule Take 1,500 mg by mouth daily 3 tabs daily Active Multiple Vitamins-Minera ls (ZINC PO) Take 2 mL by mouth daily Active cyanocobalamin (VITAMIN B-12) 1000 MCG tablet Take 100 mcg by mouth 1 (one) time each day Active Magnesium 100 MG tablet Take 120 mg by mouth daily Active acetaminophen (TYLENOL) 325 MG tablet Take by mouth daily 2 tabs daily Active lisinopril (PRINIVIL,ZESTR IL) 20 MG tablet Take 20 mg by mouth 1 (one) time each day Active Active Problems Problem Noted Date Diagnosed Date Essential (primary) hypertension 05/24/2019 Serum creatinine raised 05/24/2019 Family History Medical History Relation Comments Malignant neoplastic disease Brother Diabetes Mother Heart disease Mother Heart disease Sister Malignant tumor of breast Sister Relation Status Comments Brother Mother Sister Social History Tobacco Use Types Packs/Day Years Used Date Smoking Tobacco: Every Day Cigarettes 0.5 57 Smokeless Tobacco: Never Alcohol Use Standard Drinks/Week Comments Never 0 (1 standard drink = 0.6 oz pur e alcohol) AUDIT-C Answer Date Recorded Frequency of Alcohol Consumption Never 05/24/2019 Average Number of Drinks Not on file 019 Frequency of Binge Drinking Not on file 05/02 Comments Unknown Sex and Gender Information Value Date Recorded Sex Assigned at Not on file Legal Sex Female 9:36 AM MDT Gender Identity Not on file Sexual Orientation Not on file Last Filed Vital Signs Vital Sign Reading Time Taken Comments Blood Pressure 180/96 05/31/2019 1:21 PM CDT Man ually Pulse 70 05/31/2019 1:20 PM CDT Temperature - - Respiratory Rate - - Oxygen Saturation - - Inhaled Oxygen Concentration - - Weight 67.1 kg (148 lb) 05/31/2019 1:20 PM CDT Height 152.4 cm (5') 05/31/2019 1:20 PM CDT Body Mass Index 28.9 05/31/2019 1:20 PM CDT Plan of Treatment Health Maintenance Due Date Last Done Comments Pneumococcal PPSV23/PCV13 65 + Years / Low and Medium Risk (2 of 3 - PCV20 or PCV21) 03/07/2020 03/07/2019 Influenza Vaccine (#1) 2025 06/13/2015, 2013 Insurance PM INTERFACED INSURANCE Care Teams Cover Mat Machine Operator Relationship Specialty Start Date End Date Terrell Park MD [address] [facility] [address] [place] [phone] PCP - General 05/08/19
--- OUTSIDE RECORDS SUMMARY | 2025-06-06 21:12 | XMS_ITS | Encounter Summary ---
Author Organization [facility] Address [address] [place] [address] Care Team Providers Care Jet Man Name Role Phone Hermelindo Lazar MD Unavailable [phone] Odin YEUNG MD, Kevin Nunez Primary Care Provider [phone] Kasie Brown RN Unavailable [phone] Marc CURIEL MD, Ulysses Guerrero Primary Care Provider + Ashleigh Rouse MD Primary Care Provider Odin YEUNG MD, Francis G Primary Care Provider [phone] Ashleigh Rouse MD Primary Care Provider Tana Wagner MD Primary Care Provider [phone] Encounter Details Date Type Department Care Team (Late st Contact Info) Description 07/23/2020 Pharmacist Telephone/Documentatio yair [facility] General Internal Medicine [address] [facility], [place] [address] Kevin Newby III, MD [address] [place] [phone] Social History Tobacco Use Types Packs/Day Years Used Date Smoking Tobacco: Every Day Cigarettes 1 64.8 Started: 1960 Smokeless Tobacco: Never Alcohol Use Standard Drinks/Week [...] 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 No / Unsure 07/01/2020 5:16 PM COAL WASHER documented as of this encounter Plan of Treatment Upcoming Encounters Date Type Department Care Team (Late st Contact Info) Description 07/01/2025 1:30 PM COAL WASHER Office Visit [facility] - Neurology [address] [facility] [place] [id number] Liz Zelaya PA-C [address] [place] [address] [address] [place] [phone] 07/03/2025 1:00 PM COAL WASHER Office Visit [facility] - Orthopedic Surgery [address] [place] [phone] Humberto Carlton MD [address] [facility] [address] [place] [address] documented as of this encounter Visit Diagnoses Not on filedocumented in this encounter Additional Health Concerns Infection Onset Date Last Indicated Resolved Time COVID-19 Under Investigation 06/01/2024 06/01/2024 06/01/2024 8:23 PM CDT documented as of this encounter Care Teams Jet Man Relationship Specialty Start Date End Date Kevin Newby III, MD [address] [place] [address] PCP - General 06/05/19 07/27/20 Ulysses Tran II, MD [address] OF [facility] [place] [address] PCP - General Student Resident 07/28/20 10/14/20 Ashleigh Rouse MD [address] [place] [address] PCP - General 10/15/20 03/25/21 Kevin Newby III, MD [address] [place] [address] PCP - General 03/26/21 07/16/21 Ashleigh Rouse MD [address] [place] [address] PCP - General Internal Medicine Geriatric Medicine 07/17/21 08/24/23 Tana Wagner MD [address] [place] [address] PCP - General Internal Medicine Geriatric Medicine 08/25/23 Hermelindo Lazar MD [address] [place] [phone] Obstetrics and Gynecology 01/30/19 Kasie Brown, RN Aed TrainerResearch Microbiologist 08/16/19 documented as of this encounter
--- OUTSIDE RECORDS SUMMARY | 2025-06-06 21:12 | XMS_ITS | Encounter Summary ---
Author Organization [facility] Address [address] [place] [address] Care Team Providers Care Metal Wire Technician Name Role Phone Hermelindo Lazar MD Unavailable [phone] Kasie Brown RN Unavailable [phone] Ashleigh Rouse MD Primary Care Provider [phone] Tana Wagner MD Primary Care Provider [phone] Encounter Details Date Type Department Care Team (Late st Contact Info) Description 07/28/2023 Refill [facility] - [address] [facility], [place] [phone] [place] [address] Social History Tobacco Use Types Packs/Day Years Used Date Smoking Tobacco: Every Day Cigarettes 0.5 64.8 Started: 1960 Smokeless Tobacco: Never Alcohol Use Standard Drinks/Week Comments Not Currently 0 (1 standard drink = 0.6 oz pur e alcohol) social AUDIT-C Answer Date Recorded Frequency of Alcohol Consumption Never 07/19/2019 Average Number of Drinks Not on file 019 Frequency of Binge Drinking Not on file 07/01 PHQ-2 Answer Date Recorded Patient Health Questionnaire-2 Score 1 03/25/2023 Comments No Sex and Gender Information Value Date Recorded Sex Assigned at Not on file Legal Sex Female 9:43 AM CDT Gender Identity Not on file Sexual Orientation Not on file 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 Not on file Not on file documented as of this encounter Plan of Treatment Upcoming Encounters Date Type Department Care Team (Late st Contact Info) Description 07/01/2025 1:30 PM SALES SUPPORT ASSISTANT Office Visit [facility] - Neurology [address] [facility] [place] [address] Liz Zelaya PA-C [address] [facility] [address] [place] [phone] 07/03/2025 1:00 PM SALES SUPPORT ASSISTANT Office Visit [facility] - Orthopedic [facility] [address] [facility] [place] [phone] Humberto Carlton MD [address] [facility] [address] [place] [address] documented as of this encounter Goals Goal Patient Goal Type Associated Problems Recent Progress Patient-Stated? Author Medication Management General No Whitney Kan RN Note: Expected end date: ongoing Interventions: Take all medications as prescribed Let your doctor know right away about any changes in your medications Make sure to request a refill of your medication at least one week prior to your last dose Medication Management General No Whitney Kan RN Note: Expected end date: ongoing Interventions: Take all medications as prescribed Let your doctor know right away about any changes in your medications Make sure to request a refill of your medication at least one week prior to your last dose Medication Management General No Whitney Kna RN Note: Expected end date: ongoing Interventions: [...] documented as of this encounter Care Teams Metal Wire Technician Relationship Specialty Start Date End Date Ashleigh Rouse MD [address] [address] PCP - General Internal Medicine Geriatric Medicine 07/17/21 08/24/23 Tana Wagner MD [address] [facility] [place] [address] PCP - General Internal Medicine Geriatric Medicine 08/25/23 Hermelindo Lazar MD [address] [facility] [address] [place] [address] Obstetrics and Gynecology 01/30/19 Kasie Brown, ROCAEL Enterprise Resource Planning ConsultantStorehouse Clerk 08/16/19 documented as of this encounter
--- OUTSIDE RECORDS SUMMARY | 2025-06-06 21:12 | XMS_ITS | Clinical Summary ---
Author Organization [facility] Address [address] [address] Care Team Providers [facility] Name Role Phone Hermelindo Lazar MD Unavailable [phone] Kasie Brown RN Unavailable [phone] Tana Wagner MD Primary Care Provider [phone] Source Comments [facility],non-owned Affiliates and Associated Physician Practices is amultiple site organization consisting of ambulatory clinics and hospital sitesin [place], [place], [place] and [place]. This disclosure is being madepursuant to the Care Everywhere program and may not contain all information available regarding this patient. Last updated 18.[facility] [employer] Allergies Active Allergy Reactions Criticality Noted Date Comments Naproxen Rash Medium 08/13/2019 Amlodipine Base Elevated Blood Pressure Medium 06/12/2019 Aspirin GI Discomfort Medium 05/19/2016 Upset stomach, hemorrhoid bleeding Nsaids Rash Medium 05/19/2016 Hmg-Coa-R Inhibitors GI Discomfort Medium 05/19/2016 Muscle weakness and upset stomach Apap-Fd&C Blue #1-Hydrocodone Vomiting 08/26/2021 Medications * Be aware that medications may not be up to date on this document. Alwaysverify current medications with the patient. Multiple Vitamins-Mineral s (PRESERVISION AREDS 2 PO) Take 1 capsule by mouth 2 times daily Active Glucosamine-Evert droit-Vit C-Mn (GLUCOSAMINE 1500 COMPLEX) CAPS Take by mouth 2 times daily Active renal vitamin (Dialyvite) tablet Take 1 (one) tablet by mouth once daily 11/20/19 25 Active acetaminophen (Tylenol) 325 MG tablet Take 2 (two) tablets by mouth every 6 hours as needed for Fever or Pain Maximum allowable Acetaminophen amount = 4 Grams (4000 mg) / 24 hours. 60 tablet 11/29/19 25 Active lidocaine (Lidoderm) 5 % patchIndications :Pain Apply 1 (one) patch to skin once daily Apply patch to most painful area and remove after 12 hours. May reapply a new patch 12 hours later. 30 patch 1 01/09/20 25 Active albuterol HFA (ProAir HFA) 108 (90 Base) MCG/ACT inhalerIndicatio ns:Centrilobular emphysema (HCC) Inhale 2 (two) puffs by mouth every 4 hours as needed 8.5 g 3 01/09/20 25 Active budesonide-formo terol (Symbicort) 80-4.5 MCG/ACT inhalerIndicatio ns:Centrilobular emphysema (HCC) Inhale 2 (two) puffs by mouth 2 times daily 10.2 g 3 01/09/20 25 Active diazePAM (Valium) 5 MG tabletIndication s:Anxiety Take 1 (one) tablet by mouth once daily 30 tablet 5 02/22/20 25 Active polyethylene glycol 3350 (Miralax) 17 g packet Take 17 (seventeen) g by mouth once daily 03/01/20 25 Active pregabalin (Lyrica) 50 MG capsuleIndicatio ns:Closed fracture of neck of right femur, initial encounter ([facility]) Take 1 (one) capsule by mouth 3 times daily 90 capsule 03/11/20 25 Active gabapentin (Neurontin) 100 MG capsule Take 1 (one) capsule by mouth at bedtime 30 capsule 03/13/20 25 Active carvedilol (Coreg) 25 MG tablet 1 (one) tablet by Enteral Tube route 2 times daily with morning and evening meal 05/25/20 25 Active aflibercept (EYLEA) 2 MG/0.05ML injectionIndicat ions:macular degeneration 0.05 mL by Intraocular route once 7 Week schedule. Next due 2024 Reasons: macular degeneration Discontin ued(Tx Complete) Methoxy PEG-Epoetin Beta (MIRCERA IJ) 30 mcg 11/13/19 Discontin ued(Tx Complete) aspirin (Aspirin) 81 MG chew tablet Take 1 (one) tablet by mouth 2 times daily (chew and swallow) 02/29/20 Discontin ued(Clini rimma Decision) Active Problems Problem Noted Date Diagnosed Date [...] Neurology OP Keep SBP <160 PEG (placed 05/20) w TF Continuous: Nepro at 40 ml/hr. F/u w ACS for PEG removal when able. Acute respiratory failure with hypoxia Slow transit constipation 02/26/2025 Closed fracture of neck of right femur, initial encounter 02/24/2025 Encounter for post surgical wound check 11/28/19 ESRD on dialysis 09/02/2024 Assessment & Plan (05/25/2025 11:53 AM CDT): TTS via [facility] Nephrology follow up Assessment & Plan (05/24/2025 7:21 AM CDT): TTS via [facility] Nephrology consulted Assessment & Plan (05/23/2025 2:21 PM CDT): TTS via [facility] Nephrology consulted Assessment & Plan (05/22/2025 7:38 AM CDT): TTS via [facility] Nephrology consulted 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 Needs yearly screening-- Assessment & Plan (07/18/2019 3:24 PM DISPLAY TRIMMER): Repeat CT scan--Jul 2020 Ruptured pararenal abdominal [...] carvedilol 25mg bid Diverticulosis of colon 05/04/2019 Resolved Problems Problem Noted Date Diagnosed Date Resolved Date Hypoxia 02/24/2025 02/26/2025 Obesity 07/18/2019 07/18/2019 Chest pain 06/11/2019 07/18/2019 Encounters Date Type Department Care Team Description 06/05/2025 Telephone Transitional Care at [address] [phone] Rosette Moore MA Question 05/20/2025 7:29 AM CDT Anesthesia Event [facility] [address] [place] [phone] Anna Angelo MD Saucier, Michael 05/20/2025 7:15 AM CDT - 05/20/2025 9:11 AM CDT Surgery [facility] [address] [place] [address] Britton Tong MD PLACEMENT/REPLACEME NT GASTROSTOMY TUBE (PERCUTANEOUS) 05/14/2025 1:16 PM CDT - 05/25/2025 12:53 PM CDT Hospital Encounter [facility] [address] [place] [phone] Preet Escalera MD Edgell, MD Gwendolyn Colvin Cindy C, MD Kitchener, Jacob M, MD Chinnery, MD Rajat Neurology Discharge Disposition: Rehab:Inpatient 05/14/2025 Travel 03/27/2025 12:15 PM CDT Office Visit [facility] - Orthopedic Surgery [address] [place] [phone] Humberto Carlton MD Closed fracture of neck of right femur with routine healing, subsequent encounter (Primary Dx) 03/27/2025 12:04 PM CDT - 03/27/2025 11:59 PM CDT Hospital Encounter [facility] - Orthopedics [address] [place] [address], [facility] [address] [place] [address] Humberto Carlton MD Discharge Disposition: Home or Self Care 03/27/2025 Travel 03/20/2025 Telephone [facility] - Orthopedic Surgery [address] [place] [phone] Humberto Carlton MD Med Question 03/20/2025 Orders Only [facility] [address] [place] [phone] Donna Andino, ROCAEL Closed fracture of neck of right femur, initial encounter ([facility]) ; Sacral back pain 03/13/2025 Refill [facility] Surgery [address] [place] [phone] Humberto Carlton MD MEDICATION REFILL 03/13/2025 Telephone [facility] - Endocrinology [address] [place] [phone] Tana Wagner MD Appointment 03/11/2025 Refill [facility] [address] [place] [phone] Humberto Carlton MD MEDICATION REFILL 03/11/2025 Telephone [facility] - Geriatrics [address] [place] [phone] Tana Wagner MD Follow-up 03/11/2025 Refill [facility] [address] [place] [phone] Humberto Carlton MD MEDICATION REFILL from Last 3 Months Immunizations Immunization Administration Dates Next Due Digitel primary monoval ent 12+ yr 0.3mL Purple cap 06/04/2021,10/13/2020,09/22/2020 FLU VACCINE TRI IIV3 SPLIT P F IM (FLUVIRIN) 06/11/2014 Hep B, Adjuvanted 07/20/2024 INFLUENZA VACCINE, HIGH-DOSE , QUADR. (FLUZONE HIGH-DOSE QUADRIVALENT; 65Y+), 0.7 ML (HD-IIV4) 05/07/2021,05/13/2020,05/17/2018,2009,05/16/2009 INFLUENZA VACCINE, QUADR. (F LUZONE; FLULAVAL; FLUARIX; AFLURIA QUADRIVALENT; 6MO+), 0.5 ML (IIV4) 06/13/2015 PNEUMOCOCCAL PPSV23 04/18/2012 Pneumococcal Pcv13 Conj 03/07/2019 TDAP (7yrs+) 07/18/2019 Family History Medical History Relation Name Comments Cancer - Lung Brother Parkinson's Disease Father Cancer - Colon Maternal Grandmother CAD (Coronary Artery Disease) Mother Cancer - Stomach Paternal Grandmother Cancer - Breast Sister Relation Name Status Comments Brother Father Maternal Grandmother Mother Paternal Grandmother Sister Social History Tobacco Use Types Packs/Day Years Used Date Smoking Tobacco: Every Day Cigarettes 1 63 Smokeless Tobacco: Never Tobacco Cessation:Ready to Q uit: Not Asked; Counseling Given: Not Answered Alcohol Use Standard Drinks/Week Comments Not Currently [...] any time in the past 12 m ont, were you homeless or living in a usp (including now)? No 02/24/2025 AUDIT-C Answer Date [...] care, and heating? Not very hard 05/14/2025 [facility] - Occupational Stress [...] any time in the past 12 m [facility], were you homeless or living in a usp (including now)? 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 Not on file Not on file Not on file Last Filed Vital Signs Vital Sign Reading Time Taken Comments Blood Pressure 111/73 05/25/2025 11:50 AM CDT Pulse 62 05/25/2025 11:50 AM CDT Temperature 36.7 C (98.1 F) 05/25/2025 11:50 AM CDT Respiratory Rate 18 05/25/2025 11:50 AM CDT Oxygen Saturation 98% 05/25/2025 11:50 AM CDT Inhaled Oxygen Concentration - - Weight 58.7 kg (129 lb 8 oz) 05/22/2025 6:24 AM CDT Height 162.6 cm (5' 4) 05/14/2025 1:16 PM CDT Body Mass Index 22.23 05/14/2025 1:16 PM CDT Plan of Treatment Upcoming Encounters Date Type Department Care Team (Late st Contact Info) Description 07/01/2025 1:30 PM DISPLAY TRIMMER Office Visit [facility] - Neurology [address] [facility] [place] [address] Liz Zelaya, PASumiC [address] [place] [address] [address] [place] [phone] 07/03/2025 1:00 PM DISPLAY TRIMMER [facility] [place] [phone] Humberto Carlton MD [address] [address] Health Maintenance Due Date Last Done Comments ZOSTER VACCINE (1 of 2) 1964 Respiratory Syncytial Virus (RSV) Vaccine Pt: or over 60 yrs (1 - 1-dose 75+ series) 2020 MEDICARE AWV CALENDAR YEAR 2024 HEPATITIS B VACCINE (2 of 3 - Risk Dialysis 4-dose series) 08/17/2024 07/20/2024 LUNG CANCER SCREENING 12/15/2024 12/16/2023, 019 COVID-19 VACCINE ( season) 2025 06/04/2021, 10/13/2020, 09/22/2020 INFLUENZA VACCINE (#1) 2025 , 05/13/2020, 05/17/2018, Additional history exists DTAP/TDAP/TD VACCINES (2 - Td or Tdap) 07/18/2029 07/18/2019 PNEUMOCOCCAL VACCINE 50+ Completed 03/07/2019, 04/01 BONE DENSITY TESTING Completed 01/29/2025, 07/06/2019, 06/06/2017 DEPRESSION SCREENING Completed 02/20/2025, 08/26/2022, 08/24/2021 HIB VACCINE Aged Out No longer eligi ble based on patient's age to complete this topic HPV VACCINE Aged Out No longer eligi ble based on patient's age to complete this topic MENINGOCOCCAL (Group B) VACCINE SHARED DECISION-MAKING Aged Out No longer eligible based on patient's age to complete this topic MENINGOCOCCAL GROUPS A/C/Y/W VACCINE Aged Out No longer eligible based on patient's age to complete this topic Goals Goal Patient Goal Type Associated Problems [...] one week prior to your last dose Medical Devices Implanted Type Area Animal Nutrition Consultant Device Identifier Shelf Expiration Date Model / Serial / Lot Cath Dlys 15fr 62cm 2 Cuf Radopq Prtnl Implanted:Qty: 1 on 03/19/2024 by Beatriz Bruno MD at [facility] Vein Covidien 07/17/2028 [id number] / / [id number] Kit Durathane Drflw Embosafe Chrnc Dlys Implanted:Qty: 1 on 06/15/2024 by Beatriz Bruno MD at [facility] Right: Chest Wall [employer] 03/31/2026 [id number] / / [id number] Screw 8mm 80mm Alonso Lng Bone Sm Bone Ss Implanted:Qty: 2 on 02/25/2025 by Humberto Carlton MD at [facility] Right: Hip [employer] [id number] / / 8.0 Sst Cannulated Screw Implanted:Qty: 1 on 02/25/2025 by Humberto Carlton MD at [facility] Right: Hip [employer] [id number] / / Procedures Procedure Name Priority Date/Time Associated Diagnosis Comments GLUCOSE - POINT OF CARE Routine 05/25/2025 10:01 AM CDT GLUCOSE - POINT OF CARE Routine 05/25/2025 5:05 AM CDT GLUCOSE - POINT OF CARE Routine 05/25/2025 12:48 AM CDT GLUCOSE - POINT OF CARE Routine 05/24/2025 8:49 PM CDT RENAL FUNCTION PANEL Routine 05/24/2025 7:22 PM CDT CBC W/O DIFFERENTIAL Routine 05/24/2025 7:22 PM CDT GLUCOSE - POINT OF CARE Routine 05/24/2025 5:29 PM CDT HEMODIALYSIS INPATIENT Routine 05/24/2025 2:38 PM CDT GLUCOSE - POINT OF CARE Routine 05/24/2025 9:06 AM CDT GLUCOSE - POINT OF CARE Routine 05/24/2025 4:02 AM CDT GLUCOSE - POINT OF CARE Routine 05/23/2025 8:16 PM CDT GLUCOSE - POINT OF CARE Routine 05/23/2025 4:58 PM CDT GLUCOSE - POINT OF CARE Routine 05/23/2025 12:26 PM CDT GLUCOSE - POINT OF CARE Routine 05/23/2025 4:47 AM CDT GLUCOSE - POINT OF CARE Routine 05/22/2025 9:21 PM CDT RENAL FUNCTION PANEL Routine 05/22/2025 6:45 PM CDT CBC W/O DIFFERENTIAL Routine 05/22/2025 6:45 PM CDT HEMODIALYSIS INPATIENT Routine 05/22/2025 3:16 PM CDT XR CHEST 1VW PORTABLE Routine 05/22/2025 1:29 PM CDT Brainstem hemorrhage, nontraumatic (HCC) GLUCOSE - POINT OF CARE Routine 05/22/2025 12:05 PM CDT GLUCOSE - POINT OF CARE Routine 05/22/2025 5:01 AM CDT GLUCOSE - POINT OF CARE Routine 05/22/2025 12:06 AM CDT CBC W/O DIFFERENTIAL Routine 05/21/2025 7:10 PM CDT RENAL FUNCTION PANEL Routine 05/21/2025 7:10 PM CDT MAGNESIUM BLOOD Routine 05/21/2025 7:10 PM CDT GLUCOSE - POINT OF CARE Routine 05/21/2025 6:14 PM CDT GLUCOSE - POINT OF CARE Routine 05/21/2025 11:22 AM CDT HEMODIALYSIS INPATIENT Routine 05/21/2025 7:25 AM CDT GLUCOSE - POINT OF CARE Routine 05/21/2025 4:52 AM CDT PTH INTACT W/O CALCIUM KARTHIKEYAN 05/21/2025 4:19 AM CDT IRON + TRANSFERRIN PANEL Routine 05/21/2025 4:19 AM CDT FERRITIN Routine 05/21/2025 4:19 AM CDT RENAL FUNCTION PANEL Routine 05/21/2025 4:19 AM CDT CBC W AUTO DIFFERENTIAL Routine 05/21/2025 4:19 AM CDT MAGNESIUM BLOOD Routine 05/21/2025 4:19 AM CDT GLUCOSE - POINT OF CARE Routine 05/21/2025 12:17 AM CDT GLUCOSE - POINT OF CARE Routine 05/20/2025 7:57 PM CDT GLUCOSE - POINT OF CARE Routine 05/20/2025 4:56 PM CDT GLUCOSE - POINT OF CARE Routine 05/20/2025 11:16 AM CDT ENDOTRACHEAL TUBE NOTE Routine 05/20/2025 7:[address] GASTROSTOMY TUBE PERC 05/20/2025 7:14 AM CDT Pharyngeal cancer (HCC) GLUCOSE - POINT OF CARE Routine 05/20/2025 6:19 AM CDT RENAL FUNCTION PANEL Routine 05/20/2025 4:57 AM CDT CBC W AUTO DIFFERENTIAL Routine 05/20/2025 4:57 AM CDT MAGNESIUM BLOOD Routine 05/20/2025 4:57 AM CDT GLUCOSE - POINT OF CARE Routine 05/20/2025 12:13 AM CDT GLUCOSE - POINT OF CARE Routine 05/19/2025 4:29 PM CDT GLUCOSE - POINT OF CARE Routine 05/19/2025 12:22 PM CDT GLUCOSE - POINT OF CARE Routine 05/19/2025 6:29 AM CDT RENAL FUNCTION PANEL Routine 05/19/2025 2:54 AM CDT CBC W AUTO DIFFERENTIAL Routine 05/19/2025 2:54 AM CDT MAGNESIUM BLOOD Routine 05/19/2025 2:54 AM CDT GLUCOSE - POINT OF CARE Routine 05/19/2025 12:02 AM CDT GLUCOSE - POINT OF CARE Routine 05/18/2025 4:29 PM CDT XR CHEST 1VW PORTABLE STAT 05/18/2025 3:20 PM CDT Brainstem hemorrhage, nontraumatic (HCC) GLUCOSE - POINT OF CARE Routine 05/18/2025 2:17 PM CDT GLUCOSE - POINT OF CARE Routine 05/18/2025 12:16 PM CDT HEPATITIS B SURFACE ANTIBODY QUANT STAT 05/18/2025 10:33 AM CDT HEPATITIS B SURFACE ANTIGEN W RFLX CONFIRMATION STAT 05/18/2025 10:33 AM CDT GLUCOSE - POINT OF CARE Routine 05/18/2025 7:51 AM CDT GLUCOSE - POINT OF CARE Routine 05/18/2025 6:12 AM CDT DIFFERENTIAL MANUAL Routine 05/18/2025 3 :24 AM CDT RENAL FUNCTION PANEL Routine 05/18/2025 3:24 AM CDT CBC W AUTO DIFFERENTIAL Routine 05/18/2025 3:24 AM CDT MAGNESIUM BLOOD Routine 05/18/2025 3:24 AM CDT GLUCOSE - POINT OF CARE Routine 05/17/2025 9:10 PM CDT HEMODIALYSIS INPATIENT Routine 05/17/2025 2:28 PM CDT FL SWALLOWING FUNCTION STUDY Routine 05/17/2025 1:32 PM CDT Thalamic hemorrhage (HCC) MAGNESIUM BLOOD Routine 05/17/2025 1:00 AM CDT CBC W AUTO DIFFERENTIAL Routine 05/17/2025 1:00 AM CDT RENAL FUNCTION PANEL Routine 05/17/2025 1:00 AM CDT LIPID PROFILE Routine 05/16/2025 9:13 AM CDT MAGNESIUM BLOOD Routine 05/16/2025 12:47 AM CDT CBC W AUTO DIFFERENTIAL Routine 05/16/2025 12:47 AM CDT RENAL FUNCTION PANEL Routine 05/16/2025 12:47 AM CDT GLUCOSE - POINT OF CARE Routine 05/15/2025 12:55 PM CDT GLUCOSE - POINT OF CARE Routine 05/15/2025 8:50 AM CDT GLUCOSE - POINT OF CARE Routine 05/15/2025 4:00 AM CDT URINE DRUG SCREEN IMMUNOASSAY STAT 05/14/2025 11:16 PM CDT HEMOGLOBIN A1C KARTHIKEYAN 05/14/2025 11:13 PM CDT GLUCOSE - POINT OF CARE Routine 05/14/2025 11:12 PM CDT MAGNESIUM BLOOD Routine 05/14/2025 11:10 PM CDT CBC W AUTO DIFFERENTIAL Routine 05/14/2025 11:10 PM CDT RENAL FUNCTION PANEL Routine 05/14/2025 11:10 PM CDT XR ABDOMEN KUB PORTABLE STAT 05/14/2025 10:20 PM CDT Brainstem hemorrhage, nontraumatic (HCC) GLUCOSE - POINT OF CARE Routine 05/14/2025 9:[address] HEAD WO CONTRAST RT TIMED 05/14/2025 6 :28 PM CDT Weakness XR KNEE RIGHT 3VW STAT 05/14/2025 6:0 4 PM CDT Ecchymosis XR FEMUR LEFT 2VW STAT 05/14/2025 6:0 4 PM CDT Ecchymosis XR PELVIS W LEFT HIP 2VW STAT 05/14/2025 6:03 PM CDT Ecchymosis TROPONIN-I HIGH SENSITIVE REFLEX 1HOUR Timed 05/14/2025 3:48 PM CDT GLUCOSE - POINT OF CARE Routine 05/14/2025 3:29 PM CDT TROPONIN-I HIGH SENSITIVE BASELINE + 1HR STAT 05/14/2025 2:11 PM CDT PTT STAT 05/14/2025 2:11 PM CDT PT-INR STAT 05/14/2025 2:[address] ANGIO BRAIN NECK STROKE STAT 05/14/2025 1:57 PM CDT Weakness EKG 12-LEAD STAT 05/14/2025 1:53 PM CDT Weakness TROPONIN-I HIGH SENSITIVE STAT 05/14/2025 1:49 PM CDT PT-INR STAT 05/14/2025 1:49 PM CDT COMPREHENSIVE METABOLIC PANEL STAT 05/14/2025 1:49 PM CDT CBC W AUTO DIFFERENTIAL STAT 05/14/2025 1:49 PM CDT INR WHOLE BLOOD - POINT OF CARE (IP) STROKE Routine 05/14/2025 1:[address] BRAIN STROKE STAT 05/14/2025 1:28 PM CDT Weakness GLUCOSE - POINT OF CARE Routine 05/14/2025 1:18 PM CDT XR SACRUM AND COCCYX Routine 03/27/2025 12:19 PM CDT Sacral back pain XR PELVIS W RIGHT HIP 2VW Routine 03/27/2025 12:19 PM CDT Closed fracture of neck of right femur, initial encounter (HCC) DEXA BONE DENSITY AXIAL SKELETON Routine 01/29/2025 11:37 AM CDT Age-related osteoporosis without current pathological fracture CT LUNG SCREEN LOW DOSE Routine 12/16/2023 1:06 PM CDT Screening for lung cancer from Last 3 Months or Most Recently Relevant to Health Maintenance Results * (ABNORMAL) GLUCOSE - POINT OF CARE (05/25/2025 10:01 AM CDT) Only the most recent of41 resultswithin the time period is included. [facility] Glucose WB/POC 106(H) 70 - 99 mg/dL 05/25/2025 10:01 AM CDT [facility] Specimen Type Arterial/C apillary 05/25/2025 10:01 AM T [facility] Blood BLOOD SPECIMEN / Unknown 05/25/2025 10:01 AM CDT 05/25/2025 10:01 AM CDT us Rajat Johnston MD LAB - POINT OF CARE ORDERABLES Final Result Performing Organization Address City/State/[facility] Co de Phone Number [address] [address], [facility] [phone] * (ABNORMAL) CBC W/O DIFFERENTIAL (05/24/2025 7:22 PM CDT) Only the most recent of3 resultswithin the time period is included. [facility] WBC 7.8 4.0 - 10.7 x10E9/L 05/24/2025 8:37 PM [facility] RBC Count 2.67(L) 3.90 - 5.20 x10E12/L 05/24/2025 8:37 PM [facility] Hemoglobin 8.9(L) 11.9 - 15.8 g/dL 05/24/2025 8:37 PM [facility] Hematocrit 27.5(L) 34.8 - 46.1 % 05/24/2025 8:37 PM [facility] MCV 103.0(H) 80.0 - 98.0 fL 05/24/2025 8:37 PM [facility] MCH 33.3 26.7 - 33.6 pg 05/24/2025 8:37 PM [facility] MCHC 32.4 31.7 - 36.3 g/dL 05/24/2025 8:37 PM [facility] RDW-CV 15.7(H) 11.3 - 14.8 % 05/24/2025 8:37 PM [facility] Platelet Count 273 150 - 420 x10E9/L 05/24/2025 8:37 PM [facility] MPV 10.7 7.8 - 11.4 fL 05/24/2025 8:37 PM [facility] Blood BLOOD SPECIMEN / Unknown Lab Venipuncture / Unknown 05/24/2025 7:22 PM CDT 05/24/2025 8:13 PM CDT us Rajat Johnston MD LAB - HEMATOLOGY ORDERABLES Fi nal Result [address] [address], [facility] [phone] * (ABNORMAL) RENAL FUNCTION PANEL (05/24/2025 7:22 PM CDT) Only the most recent of10 resultswithin the time period is included. BUN 56(H) 7 - 26 mg/dL 05/24/2025 8:47 PM [facility] Creatinine 3.83(H) 0.56 - 0.96 mg/dL 05/24/2025 8:47 PM [facility] Sodium 137 136 - 145 mmol/L 05/24/2025 8:47 PM [facility] Potassium 4.2 3.5 - 4.5 mmol/L 05/24/2025 8:47 PM [facility] Chloride 101 98 - 107 mmol/L 05/24/2025 8:47 PM [facility] CO2 28 22 - 29 mmol/L 05/24/2025 8:47 PM [facility] Glucose 122(H) 70 - 99 mg/dL 05/24/2025 8:47 PM [facility] Albumin 3.4 3.4 - 5.0 g/dL 05/24/2025 8:47 PM [facility] Calcium 9.8 8.4 - 10.2 mg/dL 05/24/2025 8:47 PM CDT [facility] Phosphorus 3.9 2.9 - 5.1 mg/dL 05/24/2025 8:47 PM CDT [facility] Anion Gap 8 6 - 16 05/24/2025 8:47 PM CDT [facility] BUN/Creatinine Ratio 15 7 - 23 05/24/2025 8:47 PM T [facility] Osmolality Calculated 301(H) 275 - 295 mOsm/kg 05/24/2025 8:47 PM T [facility] eGFR by CKD-EPI 11(L) >=90 mL/min/1.7 3 m2 05/24/2025 8:47 PM T [facility] Comment:Estimated Glomerular Filtration Rate (eGFR) calculated using the CKD-EPI Creatinine Equation (2020), per the National Kidney Foundation and [place] [employer]ph[employer] recommendations. Blood BLOOD SPECIMEN / Unknown Lab Venipuncture / Unknown 05/24/2025 7:22 PM CDT 05/24/2025 8:13 PM CDT us Rajat Johnston MD LAB - CHEMISTRY ORDERABLES Fin al Result [facility] [address] [place] [address], [facility] [phone] * XR Chest 1Vw Portable (05/22/2025 1:29 PM CDT) Only the most recent of2 resultswithin the time period is included. Anatomical Region Laterality Modality Chest Digital Radiogra phy 05/23/2025 1:11 AM CDT Impressions 05/23/2025 1:12 AM CDT Impression: Right internal jugular central venous catheter is in the superior cavoatrial junction. Partially visualized cervical spine instrumentation. There is mild pulmonary edema. Right lower lung consolidation has increased and could represent atelectasis or aspiration.There is no pleural effusion.There is no pneumothorax. The cardiomediastinal silhouette is stable. > Interpreting Provider: Adelfo Chapin MD on 05/23/2025 1:12 AM Narrative 05/23/2025 1:12 AM CDT PROCEDURE: XR CHEST 1VW PORTABLE, DATE/TIME OF EXAM: 05/22/2025 1:29 PM, LOCATION [facility] INDICATION: I61.3: Brainstem hemorrhage, nontraumatic (HCC) ADDITIONAL CLINICAL INFORMATION: Ordering Provider Reason For Exam: asp pna? Technologist Note: Additional: COMPARISON: 05/18/2025, XR CHEST 1VW PORTABLE Procedure Note Adlefo Chapin MD - 05/23/2025 PROCEDURE: XR CHEST 1VW PORTABLE, DATE/TIME OF EXAM: 05/22/2025 1:29PM, LOCATION [facility] INDICATION: I61.3: Brainstem hemorrhage, nontraumatic (HCC) ADDITIONAL CLINICAL INFORMATION: Ordering Provider Reason For Exam: asp pna? Technologist Note: Additional: COMPARISON: 05/18/2025, XR CHEST 1VW PORTABLE Impression: Right internal jugular central venous catheter is in the superior cavoatrial junction. Partially visualized cervical spineinstrumentation. There is mild pulmonary edema. Right lower lung consolidation hasincreased and could represent atelectasis or aspiration.There is no pleural effusion.There is no pneumothorax. The cardiomediastinal silhouette is stable. > Interpreting Provider: Adelfo Chapin MD on 05/23/2025 1:12 AM Rajat Johnston MD DIAGNOSTIC IMAGING ORDERABLES Final Result * MAGNESIUM BLOOD (05/21/2025 7:10 PM CDT) Only the most recent of8 resultswithin the time period is included. Magnesium 2.4 1.6 - 2.6 mg/dL 05/21/2025 9:07 PM CDT [facility] Blood BLOOD SPECIMEN / Unknown Lab Venipuncture / Unknown 05/21/2025 7:10 PM CDT 05/21/2025 8:07 PM CDT Rajat Johnston MD LAB - CHEMISTRY ORDERABLES Fin al Result [facility] [address] [place] [id number] [phone] * (ABNORMAL) PTH INTACT W/O CALCIUM (05/21/2025 4:19 AM CDT) Pathologist [facility] PTH Intact 117.7(H) 8.0 - 77.0 pg/mL 05/21/2025 8:12 AM [facility] Blood BLOOD SPECIMEN / Unknown Lab Venipuncture / Unknown 05/21/2025 4:19 AM CDT 05/21/2025 7:28 AM CDT us Ashvin Gilbert MD LAB - CHEMISTRY ORDERABLES Final Result [facility] [address] [place] [address], [facility] [phone] * (ABNORMAL) CBC W AUTO DIFFERENTIAL (05/21/2025 4:19 AM CDT) Only the most recent of8 resultswithin the time period is included. Pathologist [facility] WBC 8.4 4.0 - 10.7 x10E9/L 05/21/2025 4:56 AM [facility] RBC Count 2.47(L) 3.90 - 5.20 x10E12/L 05/21/2025 4:56 AM [facility] Hemoglobin 8.2(L) 11.9 - 15.8 g/dL 05/21/2025 4:56 AM [facility] Hematocrit 24.6(L) 34.8 - 46.1 % 05/21/2025 4:56 AM [facility] MCV 99.6(H) 80.0 - 98.0 fL 05/21/2025 4:56 AM [facility] MCH 33.2 26.7 - 33.6 pg 05/21/2025 4:56 AM [facility] MCHC 33.3 31.7 - 36.3 g/dL 05/21/2025 4:56 AM [facility] RDW-CV 15.9(H) 11.3 - 14.8 % 05/21/2025 4:56 AM [facility] Platelet Count 218 150 - 420 x10E9/L 05/21/2025 4:56 AM [facility] MPV 10.8 7.8 - 11.4 fL 05/21/2025 4:56 AM [facility] Neutrophil % 67.4 41.0 - 74.0 % 05/21/2025 4:56 AM [facility] Lymphocyte % 20.5 17.0 - 47.0 % 05/21/2025 4:56 AM [facility] Monocyte % 11.2(H) 3.0 - 11.0 % 05/21/2025 4:56 AM [facility] Eosinophil % 0.1 0.0 - 7.0 % 05/21/2025 4:56 AM [facility] Basophil % 0.2 0.0 - 1.6 % 05/21/2025 4:56 AM [facility] Immature Granulocytes % 0.6 0.0 - 1.0 % 05/21/2025 4:56 AM [facility] Neutrophil Absolute 5.63 1.60 - 7.50 x10E9/L 05/21/2025 4:56 AM [facility] Lymphocyte Absolute 1.71 1.00 - 4.40 x10E9/L 05/21/2025 4:56 AM [facility] Monocyte Absolute 0.94 0.15 - 1.00 x10E9/L 05/21/2025 4:56 AM [facility] Eosinophil Absolute 0.01 0.00 - 0.60 x10E9/L 05/21/2025 4:56 AM [facility] Basophil Absolute 0.02 0.00 - 0.13 x10E9/L 05/21/2025 4:56 AM [facility] Blood BLOOD SPECIMEN / Unknown Lab Venipuncture / Unknown 05/21/2025 4:19 AM CDT 05/21/2025 4:45 AM T us Brock Woodall MD LAB - HEMATOLOGY ORDERABLES Final Result [facility] [address] [place] [address], [place] [phone] * (ABNORMAL) IRON + TRANSFERRIN PANEL (05/21/2025 4:19 AM CDT) Iron 63 40 - 150 ug/dL 05/21/2025 5:08 AM CDT [facility] Transferrin 126(L) 174 - 382 mg/dL 05/21/2025 5:08 AM CDT [facility] Transferrin Saturation % 40 16 - 50 % 05/21/2025 5:08 AM CDT [facility] TIBC Calculated 158(L) 240 - 450 ug/dL 05/21/2025 5:08 AM CDT [facility] Blood BLOOD SPECIMEN / Unknown Lab Venipuncture / Unknown 05/21/2025 4:19 AM CDT 05/21/2025 4:34 AM CDT Ashvin Gilbert MD LAB - CHEMISTRY ORDERABLES Final Result [address] [address], [place] [phone] * (ABNORMAL) FERRITIN (05/21/2025 4:19 AM CDT) Ferritin 1,407(H) 13 - 204 ng/mL 05/21/2025 5:59 AM CDT [facility] Comment:Result obtained by whitney arreguin. Blood BLOOD SPECIMEN / Unknown Lab Venipuncture / Unknown 05/21/2025 4:19 AM CDT 05/21/2025 4:34 AM CDT us Ashvin Gilbert MD LAB - CHEMISTRY ORDERABLES Final Result [address] [address], [place] [phone] * ETT LINE PERFORMABLE (05/20/2025 7:55 AM CDT) Narrative Aleena Denis CAA - 05/20/2025 7:55 AM CDT Aleena Denis CAA 05/20/2025 7:57 AM Endotracheal Tube Placement: Patient Location: OR. Intubation Event Date/Time: 05/20/2025 7:40 AM Procedure: intubation (21995) Procedure Section: Sedation: under general anesthesia. Indications for Airway Management: anesthesia Induction: standard IV Patient Position: sniffing and supine Mask Ventilation: easy with oral airway. Blade Type: Nolan Blade Size: 3 Laryngoscopy View: grade 1 (full cords) Intubation Adjuncts: stylet and cricoid pressure Tube: endotracheal tube Placement: oral Tube type: cuff - inflated Tube Size (MM): 7 Depth of Insertion (CM): 22 Measured From: lips Cuff Inflated With: air Number of Attempts: 1. Placement Verified By: direct visualization, bilateral breath sounds, chest auscultation and CO2 monitor Tube secured with: adhesive tape. Dentition unchanged? Yes Difficult Airway? No. Procedure Start Time: 05/20/2025 7:40 AM. Staff Section Anesthesia Provider: Anna Angelo MD Provider #1: Aleena Denis CAA. Provider #2: [facility] Aa Student, Performed the procedure. Additional Comments: Atraumatic. Lips, gums, and dentition as in Preop. Intubation performed by Terrell JACOBS. . us Anna Angelo MD GENERAL ANESTHESIA ORDERABLES Fi nal Result * (ABNORMAL) HEPATITIS B SURFACE ANTIBODY QUANT (05/18/2025 10:33 AM CDT) Hepatitis B Virus Surface Antibody Reactive( A) Non-react trell 05/18/2025 3:05 PM [facility] Comment: > 12 mIU/mL Hepatitis B surface Antibody (HBsAb). Reactive for HBsAb - individual is considered immune to Hepatitis B Virus infection. Hepatitis B Surface Antibody Quantitative 22.1(H) <8.0 mIU/mL 05/18/2025 3:05 PM T [facility] Comment: Hepatitis B Surface Antibody Numeric Result Interpretation: Nonreactive: <8.0 mIU/mL Indeterminate: 8.0 - 12.0 mIU/mL Reactive: >12.0 mIU/mL Blood BLOOD SPECIMEN / Unknown Venipuncture / Unknown 05/18/2025 10:33 AM CDT 05/18/2025 10:36 AM CDT Narrative [facility] - 05/18/2025 3:05 PM CDT This assay should not be used for blood, plasma, or tissue donor screening. This assay is not recommended for neonates born to HBV-infected or suspected HBV-infected mothers. us Tamica Liz MD LAB - SEROLOGY ORDERABLES Final Result Performing Organization Address [facility]/ZIP Co de Phone Number [address] [address], [facility] [phone] * HEPATITIS B SURFACE ANTIGEN W RFLX CONFIRMATION (05/18/2025 10:33 AM CDT) Pathologist [facility] Hepatitis B Virus Surface Antigen Non-reacti ve Non-reacti ve 05/18/2025 3:05 PM CDT [facility] Blood BLOOD SPECIMEN / Unknown Venipuncture / Unknown 05/18/2025 10:33 AM CDT 05/18/2025 10:36 AM CDT us Tamica Liz MD LAB - CHEMISTRY ORDERABLES Eve l Result Performing Organization Address [facility] Co de Phone Number [address] [address], [facility] [phone] * (ABNORMAL) DIFFERENTIAL MANUAL (05/18/2025 3:24 AM CDT) Pathologist [facility] Neutrophil % 81(H) 41 - 74 % 05/18/2025 4:36 AM CDT [facility] Lymphocyte % 12(L) 17 - 47 % 05/18/2025 4:36 AM CDT [facility] Monocyte % 7 3 - 11 % 05/18/2025 4:36 AM CDT [facility] Neutrophil Absolute 9.64(H) 1.60 - 7.50 x10E9/L 05/18/2025 4:36 AM CDT [facility] Lymphocyte Absolute 1.43 1.00 - 4.40 x10E9/L 05/18/2025 4:36 AM CDT [facility] Monocyte Absolute 0.83 0.15 - 1.00 x10E9/L 05/18/2025 4:36 AM CDT [facility] RBC Morphology REVIEWED 05/18/2025 4:36 AM CDT [facility] Dimorphic RBC Population PRESENT(A) (none) 05/18/2025 4:36 AM CDT [facility] Microcytosis MODERATE(A) (none) 05/18/2025 4:36 AM CDT [facility] Polychromatic Cells MODERATE(A) (none) 05/18/2025 4:36 AM CDT [facility] Schistocytes FEW(A) (none) 05/18/2025 4:36 AM CDT [facility] Blood BLOOD SPECIMEN / Unknown Lab Venipuncture / Unknown 05/18/2025 3:24 AM CDT 05/18/2025 3:39 AM CDT us Brock Woodall MD LAB - HEMATOLOGY ORDERABLES Final Result [facility] [address] [place] [address], [facility] [phone] * FL SWALLOWING FUNCTION STUDY (05/17/2025 1:32 PM CDT) Anatomical Region Laterality Modality Chest Digital Radiogra phy 05/17/2025 3:23 PM CDT Narrative 05/17/2025 4:11 PM CDT PROCEDURE: FL SWALLOWING FUNCTION STUDY, DATE/TIME OF EXAM: 05/17/2025 1:34 PM, LOCATION [facility] INDICATION: I61.0: Thalamic hemorrhage (HCC) ADDITIONAL CLINICAL INFORMATION: Ordering Provider Reason For Exam: Dysphagia COMPARISON: None. FLUOROSCOPY DOSE: 3.5 mGy Reference air kerma (ka,r). FLUOROSCOPY TIME: 1.9 minutes; TECHNIQUE: Modified barium swallow fluoroscopy was performed in conjunction with speech pathology staff. Fluoroscopy was provided for the procedure. The speech pathologist administered varying thickness barium liquids. FINDINGS/IMPRESSION: Postsurgical changes from anterior cervical discectomy and fusion at C4-7. Multilevel cervical spondylosis. Cervical vertebral alignment is normal. No significant anterior osteophytes. Prevertebral soft tissues normal Modified barium swallow fluoroscopy was performed as described above. Please see the report from speech pathology staff within the electronic medical record for detailed findings, assessment, and plan. The report is dictated by Mejia Landaverde MD, (regional vice president surgical sales) 05/17/2025 3:27 PM. > Dictated by Mejia Landaverde Dr 05/17/2025 3:23 PM > Dictated by Factory Engineer Nasima Gray MD have personally reviewed and interpreted this examination/study. > Interpreting Provider: Nasima Baptiste MD on 05/17/2025 4:11 PM Procedure Note Nasima Baptiste MD - 05/17/2025 PROCEDURE: FL SWALLOWING FUNCTION STUDY, DATE/TIME OF EXAM: 05/17/2025 1:34 PM, LOCATION [facility] INDICATION: I61.0: Thalamic hemorrhage (HCC) ADDITIONAL CLINICAL INFORMATION: Ordering Provider Reason For Exam: Dysphagia COMPARISON: None. FLUOROSCOPY DOSE: 3.5 mGy Reference air kerma (ka,r). FLUOROSCOPY TIME: 1.9 minutes; TECHNIQUE: Modified barium swallow fluoroscopy was performed in conjunction with speech pathology staff. Fluoroscopy was provided for the procedure. The speech pathologist administered varying thickness barium liquids. FINDINGS/IMPRESSION: Postsurgical changes from anterior cervical discectomy and fusion atC4-7. Multilevel cervical spondylosis. Cervical vertebral alignment is normal.No significant anterior osteophytes. Prevertebral soft tissues normal Modified barium swallow fluoroscopy was performed as described above. Please see the report from speech pathology staff within the electronic medical record for detailed findings, assessment, and plan. The report is dictated by Mejia Landaverde MD, (regional vice president surgical sales)05/17/2025 3:27 PM. > Dictated by Mejia Landaverde Dr 05/17/2025 3:23 PM > Dictated by Factory Engineer Nasima Gray MD have personally reviewed and interpreted this examination/study. > Interpreting Provider: Nasima Baptiste MD on 05/17/2025 4:11 PM Simone Hartley BINDING STITCHER-ENTERTAINMENT MANAGER FLUOROSCOPY ORDERABLES Fi nal Result * (ABNORMAL) LIPID PROFILE (05/16/2025 9:13 AM CDT) Cholesterol Total 114 <200 mg/dL 05/16/2025 9:59 AM CDT [facility] HDL 27(L) >40 mg/dL 05/16/2025 9:59 AM [facility] Comment: ATP III Classification of HDL Cholesterol: <40 mg/dL: Considered a major risk factor. >60 mg/dL: Considered a negative risk factor. LDL Calculated 51 <100 mg/dL 05/16/2025 9:59 AM [facility] Comment: ATP III Classification of LDL Cholesterol: <100 mg/dL: Optimal 100 - 129 mg/dL: Near Optimal/Above Optimal 130 - 159 mg/dL: Borderline High 160 - 189 mg/dL: High >190 mg/dL: Very High LDL is calculated using the Friedewald equation. Triglycerides 180(H) <150 mg/dL 05/16/2025 9:59 AM [facility] Comment: ATP III Classification of Triglycerides: <150 mg/dL: Normal 150 - 199 mg/dL: Borderline High 200 - 400 mg/dL: High >500 mg/dL: Very High Blood BLOOD SPECIMEN / Unknown Venipuncture / Unknown 05/16/2025 9:13 AM CDT 05/16/2025 9:23 AM T us Brock Woodall MD LAB - CHEMISTRY ORDERABLES F inal Result [address] [address], [facility] [phone] * (ABNORMAL) URINE DRUG SCREEN IMMUNOASSAY (05/14/2025 11:16 PM [facility]) [facility] Amphetamines Screen Urine Negative Negative : < 1000 ng/mL 05/14/2025 11:55 PM [facility] Barbiturates Screen Urine Negative Negative : < 200 ng/mL 05/14/2025 11:55 PM [facility] Benzodiazepine Screen Urine Positive(A) Negative : < 200 ng/mL 05/14/2025 11:55 PM [facility] Comment: Positive urine benzodiazepine screening results should be confirmed by another generally accepted non-immunological method such as gas chromatography or mass spectrometry. Opiates Urine Negative Negative : < 300 ng/mL 05/14/2025 11:55 PM [facility] Cocaine Metabolites Urine Negative Negative : < 300 ng/mL 05/14/2025 11:55 PM [facility] Phencyclidine Screen Urine Negative Negative : < 25 ng/ml 05/14/2025 11:55 PM T [facility] Cannabinoids Screen Urine Negative Negative : <50 ng/mL 05/14/2025 11:55 PM T [facility] Methadone Screen Urine Negative Negative : < 300 ng/mL 05/14/2025 11:55 PM [facility] Fentanyl Screen Urine Negative Negative : <1.5 ng/mL 05/14/2025 11:55 PM T [facility] Urine URINE / Unknown Collection / Unknown 05/14/2025 11:16 PM CDT 05/14/2025 11:20 PM CDT [facility] - 05/14/2025 11:55 PM CDT The Urine Toxicology Screening Panel does not screen for Propoxyphene, Meprobamate, Carisoprodol, Trazodone, lsvt-myy-rzxbzow medications and/or volatiles (Acetone, Isopropanol, Methanol or Ethylene Glycol). Ethanol, Salicylate, Acetaminophen, Tricyclic Antidepressants and several therapeutic drugs may be individually assayed in serum or plasma specimen. Toxicology testing by the [facility] is an aid to medical diagnosis and treatment of patients. No documented chain of custody was maintained. Results are intended to be used for clinical purposes only. Brock Woodall MD LAB - URINE CHEMISTRY ORDERA BLES Final Result [facility] [address] [place] [address], [facility] [phone] * HEMOGLOBIN A1C (05/14/2025 11:13 PM [facility]) Hemoglobin A1c 4.5 <=5.6 % 05/15/2025 10:04 AM [facility] Estimated Average Glucose 82 mg/dL 05/15/2025 10:04 AM [facility] Comment: HbA1c Interpretation: Normal : < 5.7% Pre-diabetes: 5.7-6.4% Diabetes: Equal to or greater than 6.5% Test results diagnostic of diabetes should be repeated for confirmation. Treatment target values recommended by ADA and other clinical organizations should be used to evaluate metabolic control in patients. Reference: [place] [employer], Standards of Care in Diabetes -2020 In patients 70 years and older consider HbA1c target range of 7.0-7.5% (Reference: Andry Ibarra et al. JAMDA. 2012) The [employer] assay for the measurement of HbA1c is a National Glycohemoglobin Standardization Program (NGSP) certified method. Blood BLOOD SPECIMEN / Unknown Venipuncture / Unknown 05/14/2025 11:13 PM CDT 05/15/2025 10:04 AM CDT us Brock Woodall MD LAB - CHEMISTRY ORDERABLES F inal Result [address] [address], [facility] [phone] * XR Abdomen Kub Portable (05/14/2025 10:20 PM CDT) Anatomical Region Laterality Modality Abdomen Digital Radiogra phy 05/15/2025 3:54 PM CDT Narrative 05/15/2025 7:16 PM CDT PROCEDURE: XR ABDOMEN KUB PORTABLE DATE/TIME OF EXAM: 05/14/2025 10:20 PM CLINICAL INFORMATION: None relevant/not provided if blank. Indication: I61.3: Brainstem hemorrhage, nontraumatic (HCC) Additional History: COMPARISON: None. FINDINGS/IMPRESSION: Enteric tube terminates in the stomach. > Dictated by Alona Gramajo MD, (regional vice president surgical sales). > Dictated by Factory Engineer Isaias Gray have personally reviewed and interpreted this examination/study. > Interpreting Provider: Isaias Garces on 05/15/2025 7:16 PM Procedure Note Isaias Garces MD - 05/15/2025 PROCEDURE: XR ABDOMEN KUB PORTABLE DATE/TIME OF EXAM: 05/14/2025 10:20 PM CLINICAL INFORMATION: None relevant/not provided if blank. Indication: I61.3: Brainstem hemorrhage, nontraumatic (HCC) Additional History: COMPARISON: None. FINDINGS/IMPRESSION: Enteric tube terminates in the stomach. > Dictated by Alona Gramajo MD, (regional vice president surgical sales). > Dictated by Factory Engineer Isaias Gray have personally reviewed and interpreted this examination/study. > Interpreting Provider: Isaias Held on 05/15/2025 7:16 PM Kyle Berrios BINDING STITCHER-ENTERTAINMENT MANAGER DIAGNOSTIC IMAGING ORD ERABLES Final Result * CT Head Wo Contrast (05/14/2025 6:28 PM CDT) Anatomical Region Laterality Modality Head Computed Tomogra phy 05/14/2025 7:20 PM CDT Impressions 05/14/2025 8:24 PM CDT IMPRESSION: Compared to the prior CT of the head and CT angiogram head the neck from the same day, 05/14/2025 at 1:26 PM: 1.Redemonstration of evolving acute intraparenchymal hemorrhage in the right thalamus, with direct intraventricular extension as well as surrounding vasogenic edema and mild local mass effect, grossly similar to the prior CT of the head from the same day. 2.No new acute intracranial hemorrhage. Report was dictated by John Farley MD, (VIR resident) 05/14/2025 7:20 PM > Dictated by John Farley MD 05/14/2025 7:20 PM > Dictated by Factory Engineer Paulina Gray MD have personally reviewed and interpreted this examination/study. > Interpreting Provider: Paulina Mensah MD on 05/14/2025 8:24 PM Narrative 05/14/2025 8:24 PM CDT PROCEDURE: CT HEAD WO CONTRAST, DATE/TIME OF EXAM: 05/14/2025 6:28 PM, LOCATION [facility] INDICATION: R53.1: Weakness EXAMINATION: Computed tomography (CT) of the head without contrast ADDITIONAL CLINICAL INFORMATION: Ordering Provider Reason For Exam: Hemorrhage Technologist Note: None. Additional: None. TECHNIQUE: CT of the head was performed without contrast according to standard protocol. CT dose reduction technique was used, including Automated Exposure Control. COMPARISON: CT of the head density change of the head the neck from 05/14/2025. FINDINGS: Redemonstration of evolving acute hematoma in the posterior, superior right thalamus that measures approximately 3.2 x 2.7 x 3.5 cm in the transaxial and craniocaudal dimensions, (series 2, image 18, and series 6, image 42), grossly unchanged compared to the prior, allowing for slight differences in the imaging techniques. There is surrounding vasogenic edema and mild local mass effect, resulting in mild effacement of the adjacent sulci. There is direct intraventricular extension of the hemorrhage with layering hemorrhage within the occipital horns of the lateral ventricles and blood products in the trigone of the right lateral ventricle. There is hyperdensity along the falx and the tentorial leaflets which could represent the sequelae of prior contrast administration, although small volume subdural hemorrhage can give a similar appearance. Similarly, there is hyperdensity within the dural venous sinuses, likely related to the presence of contrast on board. There is mild cerebral volume loss with associated ex vacuo ventricular dilatation. The basilar cisterns are patent. No mass effect or midline shift is seen. The lee-white matter differentiation is normal. Periventricular white matter hypoattenuation is indicative of chronic small vessel ischemic disease. There is vascular calcification of the carotid siphons. No acute calvarial fracture is identified. Other than bilateral cataract extractions, the orbits appear normal. There is mild paranasal sinus disease. The mastoid air cells are grossly clear. No soft tissue abnormality is identified. Procedure Note Paulina Mensah MD - 05/14/2025 PROCEDURE: CT HEAD WO CONTRAST, DATE/TIME OF EXAM: 05/14/2025 6:28 PM, LOCATION [facility] INDICATION: R53.1: Weakness EXAMINATION: Computed tomography (CT) of the head without contrast ADDITIONAL CLINICAL INFORMATION: Ordering Provider Reason For Exam: Hemorrhage Technologist Note: None. Additional: None. TECHNIQUE: CT of the head was performed without contrast according to standard protocol. CT dose reduction technique was used, including Automated Exposure Control. COMPARISON: CT of the head density change of the head the neck from 05/14/2025. FINDINGS: Redemonstration of evolving acute hematoma in the posterior, superiorright thalamus that measures approximately 3.2 x 2.7 x 3.5 cm in thetransaxial and craniocaudal dimensions, (series 2, image 18, and series 6, image42), grossly unchanged compared to the prior, allowing for slight differencesin the imaging techniques. There is surrounding vasogenic edema and mildlocal mass effect, resulting in mild effacement of the adjacent sulci. Thereis direct intraventricular extension of the hemorrhage with layering hemorrhage within the occipital horns of the lateral ventricles andblood products in the trigone of the right lateral ventricle. There is hyperdensity along the falx and the tentorial leaflets which could represent the sequelae of prior contrast administration, although small volume subdural hemorrhage can give a similar appearance. Similarly,there is hyperdensity within the dural venous sinuses, likely related to the presence of contrast on board. There is mild cerebral volume loss with associated ex vacuo ventricular dilatation. The basilar cisterns are patent. No mass effect or midline shift is seen. The lee-white matter differentiation is normal. Periventricular white matter hypoattenuation is indicative of chronicsmall vessel ischemic disease. There is vascular calcification of the carotid siphons. No acute calvarial fracture is identified. Other than bilateral cataract extractions, the orbits appear normal. There is mild paranasal sinus disease. The mastoid air cells are grossly clear. No soft tissue abnormality is identified. IMPRESSION: Compared to the prior CT of the head and CT angiogram head the neck from the same day, 05/14/2025 at 1:26 PM: 1.Redemonstration of evolving acute intraparenchymal hemorrhage in the right thalamus, with direct intraventricular extension as well as surrounding vasogenic edema and mild local mass effect, grossly similarto the prior CT of the head from the same day. 2.No new acute intracranial hemorrhage. Report was dictated by John Farley MD, (VIR resident) 05/14/2025 7:20PM > Dictated by John Farley MD 05/14/2025 7:20 PM > Dictated by Factory Engineer I, Paulina Mensah MD have personally reviewed and interpretedthis examination/study. > Interpreting Provider: Paulina Mensah MD on 05/14/2025 8:24 PM us Brock Woodall MD CT ORDERABLES Final Result * XR Knee Right 3Vw (05/14/2025 6:04 PM CDT) Anatomical Region Laterality Modality Lower Extremity Digital Radiogra phy 05/15/2025 8:04 AM CDT Impressions 05/15/2025 6:44 PM CDT IMPRESSION: No acute fracture or dislocation identified. Mild osteoarthritis. This report was dictated by Quinn Currie M.D. (/ASH Resident). > Dictated by Factory Engineer Isaias Gray have personally reviewed and interpreted this examination/study. > Interpreting Provider: Isaias Garces on 05/15/2025 6:44 PM Narrative 05/15/2025 6:44 PM CDT PROCEDURE: XR KNEE RIGHT 3VW, DATE/TIME OF EXAM: 05/14/2025 6:05 PM, LOCATION [facility] INDICATION: R58: Ecchymosis ADDITIONAL CLINICAL INFORMATION: Ordering Provider Reason For Exam: bruise COMPARISON: Right femur radiograph 02/23/2025 FINDINGS: The osseous structures are intact and well aligned without acute fracture or dislocation. Osteophytes are present along the tibial spines, lateral greater than medial, and about the femur, tibia, and marginally along the patella. Joint spaces appear preserved on nonweightbearing, nonflexed views. No joint effusion is seen. Bone density and texture are normal. Extensive arteriosclerosis is present. Incidental note is made of a fabella. Procedure Note Isaias Garces MD - 05/15/2025 PROCEDURE: XR KNEE RIGHT 3VW, DATE/TIME OF EXAM: 05/14/2025 6:05 PM, LOCATION [facility] INDICATION: R58: Ecchymosis ADDITIONAL CLINICAL INFORMATION: Ordering Provider Reason For Exam: bruise COMPARISON: Right femur radiograph 02/23/2025 FINDINGS: The osseous structures are intact and well aligned without acutefracture or dislocation. Osteophytes are present along the tibial spines, lateral greater than medial, and about the femur, tibia, and marginally alongthe patella. Joint spaces appear preserved on nonweightbearing, nonflexed views. No joint effusion is seen. Bone density and texture are normal. Extensive arteriosclerosis is present. Incidental note is made of a fabella. IMPRESSION: No acute fracture or dislocation identified. Mild osteoarthritis. This report was dictated by Quinn Currie M.D. (/ASH Resident). > Dictated by Factory Engineer Isaias Gray have personally reviewed and interpreted this examination/study. > Interpreting Provider: Isaias Garces on 05/15/2025 6:44 PM us Preet Escalera MD DIAGNOSTIC IMAGING ORDERABLES Final Result * XR Femur Left 2Vw (05/14/2025 6:04 PM CDT) Anatomical Region Laterality Modality Lower Extremity Digital Radiogra phy 05/15/2025 8:03 AM CDT Narrative 05/15/2025 6:43 PM CDT PROCEDURE: XR FEMUR LEFT 2VW, DATE/TIME OF EXAM: 05/14/2025 6:04 PM, LOCATION [facility] INDICATION: R58: Ecchymosis ADDITIONAL CLINICAL INFORMATION: Ordering Provider Reason For Exam: bruise COMPARISON: Pelvic radiograph 05/14/2025 FINDINGS/IMPRESSION: Redemonstrated external urinary catheter in place. No acute fracture or dislocation is identified. There is a serpiginous sclerotic focus within the mid to distal femoral diaphysis spanning approximately 4.0 cm in craniocaudal length, which is indeterminate and favored to represent an osseous infarct. There is an internal fixation screw within the lateral femoral condyle. The osseous structures are diffusely demineralized. The visualized soft tissues are normal. Vascular calcifications are noted. The report is dictated by Mejia Landaverde MD, (regional vice president surgical sales) 05/15/2025 8:15 AM. > Dictated by Factory Engineer Isaias Gray have personally reviewed and interpreted this examination/study. > Interpreting Provider: Isaias Garces on 05/15/2025 6:43 PM Procedure Note Isaias Garces MD - 05/15/2025 PROCEDURE: XR FEMUR LEFT 2VW, DATE/TIME OF EXAM: 05/14/2025 6:04 PM, LOCATION [facility] INDICATION: R58: Ecchymosis ADDITIONAL CLINICAL INFORMATION: Ordering Provider Reason For Exam: bruise COMPARISON: Pelvic radiograph 05/14/2025 FINDINGS/IMPRESSION: Redemonstrated external urinary catheter in place. No acute fracture or dislocation is identified. There is a serpiginous sclerotic focus within the mid to distal femoral diaphysis spanning approximately 4.0 cm in craniocaudal length, which is indeterminate and favored to represent an osseous infarct. There is an internal fixation screw within the lateral femoral condyle. The osseous structures are diffusely demineralized. The visualized soft tissues are normal.Vascular calcifications are noted. The report is dictated by Mejia Landaverde MD, (regional vice president surgical sales)05/15/2025 8:15 AM. > Dictated by Factory Engineer Isaias Gray have personally reviewed and interpreted this examination/study. > Interpreting Provider: Isaias Garces on 05/15/2025 6:43 PM us Preet Escalera MD DIAGNOSTIC IMAGING ORDERABLES Final Result * XR Pelvis W Left Hip 2Vw (05/14/2025 6:03 PM CDT) Anatomical Region Laterality Modality Pelvis Digital Radiogra phy 05/15/2025 7:56 AM CDT Impressions 05/15/2025 6:39 PM CDT IMPRESSION: 1.No acute fracture or dislocation. 2.There is an internally fixated right femoral neck fracture in unchanged osseous alignment. Report dictated by Qiunn Currie MD, MD (regional vice president surgical sales). > Dictated by Factory Engineer Isaias Gray have personally reviewed and interpreted this examination/study. > Interpreting Provider: Isaias Garces on 05/15/2025 6:39 PM Narrative 05/15/2025 6:39 PM CDT PROCEDURE: XR PELVIS W LEFT HIP 2VW, DATE/TIME OF EXAM: 05/14/2025 6:03 PM, LOCATION [facility] INDICATION: R58: Ecchymosis ADDITIONAL CLINICAL INFORMATION: Ordering Provider Reason For Exam: bruise COMPARISON: Pelvic radiograph 03/27/2025 FINDINGS: The patient is status post screw fixation of right femoral subcapital fracture. The hardware appears intact. Alignment of the right hip appears normal. Contrast is present within urinary bladder. No additional fractures are identified. No evidence of dislocation. A calcification is noted lateral to the left inferior pubic ramus adjacent to the left femoral neck favored to represent enthesophyte versus vascular calcifications. The femoral heads appear well-seated within their respective acetabula. Degenerative changes are present within the bilateral hips and visualized lumbosacral spine. The pubic symphysis is intact. The bones are mildly diffusely demineralized. The sacroiliac joints are normal. Procedure Note Isaias Garces MD - 05/15/2025 PROCEDURE: XR PELVIS W LEFT HIP 2VW, DATE/TIME OF EXAM: 56:03 PM, LOCATION [facility] INDICATION: R58: Ecchymosis ADDITIONAL CLINICAL INFORMATION: Ordering Provider Reason For Exam: bruise COMPARISON: Pelvic radiograph 03/27/2025 FINDINGS: The patient is status post screw fixation of right femoral subcapital fracture. The hardware appears intact. Alignment of the right hipappears normal. Contrast is present within urinary bladder. No additional fractures are identified. No evidence of dislocation. A calcification is noted lateral to the left inferior pubic ramus adjacentto the left femoral neck favored to represent enthesophyte versus vascular calcifications. The femoral heads appear well-seated within their respective acetabula. Degenerative changes are present within thebilateral hips and visualized lumbosacral spine. The pubic symphysis is intact.The bones are mildly diffusely demineralized. The sacroiliac joints arenormal. IMPRESSION: 1.No acute fracture or dislocation. 2.There is an internally fixated right femoral neck fracture inunchanged osseous alignment. Report dictated by Quinn Currie MD, (regional vice president surgical sales). > Dictated by Factory Engineer Isaias Gray have personally reviewed and interpreted this examination/study. > Interpreting Provider: Isaias Garces on 05/15/2025 6:39 PM Preet Escalera MD DIAGNOSTIC IMAGING ORDERABLES Final Result * (ABNORMAL) TROPONIN-I HIGH SENSITIVE REFLEX 1HOUR (05/14/2025 3:48 PM CDT) Troponin I High Sensitive 22(H) <=14 ng/L 05/14/2025 4:27 PM CDT [facility] Delta Troponin I HS 05/14/2025 4:27 PM CDT [facility] Comment:Delta value intentio cielo not calculated. Baseline to 1 hour specimen collection interval exceeded. Blood BLOOD SPECIMEN / Unknown Venipuncture / Unknown 05/14/2025 3:48 PM CDT 05/14/2025 3:54 PM CDT Brock Woodall MD LAB - CHEMISTRY ORDERABLES F inal Result [facility] [address] [place] [id number], [facility] [phone] * (ABNORMAL) TROPONIN-I HIGH SENSITIVE BASELINE + 1HR (05/14/2025 2:11 PM CDT) Troponin I High Sensitive 19(H) <=14 ng/L 05/14/2025 2:57 PM CDT [facility] Blood BLOOD SPECIMEN / Unknown Venipuncture / Unknown 05/14/2025 2:11 PM CDT 05/14/2025 2:16 PM CDT us Brock Woodall MD LAB - CHEMISTRY ORDERABLES F inal Result Performing Organization Address [facility]/ZIP Co de Phone Number [address] [address], [place] [phone] * PTT (05/14/2025 2:11 PM CDT) APTT 33.7 23.0 - 38.4 Seconds 05/14/2025 2:47 PM CDT [facility] Comment:Suggested therapeuti c range for full dose I.V. unfractionated heparin therapy for venous thromboembolism is 71 to 109 seconds. Blood BLOOD SPECIMEN / Unknown Venipuncture / Unknown 05/14/2025 2:11 PM CDT 05/14/2025 2:16 PM CDT us Brock Woodall MD LAB - COAGULATION ORDERABLES Final Result Performing Organization Address [facility] Co de Phone Number [address] [address], [place] [phone] * PT-INR (05/14/2025 2:11 PM CDT) Only the most recent of2 resultswithin the time period is included. PT 13.5 12.1 - 14.8 Seconds 05/14/2025 2:47 PM CDT [facility] INR 1.1 See Comment 05/14/2025 2:47 PM CDT [facility] Comment:The suggested therap eutic range for standard coumadin (warfarin) therapy is an INR of 2.0-3.0. For high-risk patients (Mechanical Mitral Valve Prosthesis, etc.), the suggested prophylactic therapeutic range is an INR of 2.5-3.5. Blood BLOOD SPECIMEN / Unknown Venipuncture / Unknown 05/14/2025 2:11 PM CDT 05/14/2025 2:16 PM CDT us Brock Woodall MD LAB - COAGULATION ORDERABLES Final Result [address] [address], [facility] [phone] * CT ANGIO BRAIN NECK STROKE (05/14/2025 1:57 PM CDT) Anatomical Region Laterality Modality Head Computed Tomogra phy 05/14/2025 2:30 PM CDT Impressions 05/14/2025 3:25 PM CDT IMPRESSION: 1.Please refer to separately dictated CT brain stroke report for non-angiographic findings an acute intraparenchymal hemorrhage measuring approximately centered in the right thalamus with surrounding hypoattenuating edema and intraventricular extension. 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 3.No large arterial occlusions or significant stenoses identified in the head or neck. Viz.AI was used for large vessel occlusion detection. The report was drafted by Jc Jesus MD (residential sales consultant). > Dictated by Jc Jesus MD 05/14/2025 2:30 PM > Dictated by Factory Engineer I, Pedro Neville MD have personally reviewed and interpreted this examination/study. > Interpreting Provider: Pedro Neville MD on 05/14/2025 3:25 PM Narrative 05/14/2025 3:25 PM CDT PROCEDURE: CT ANGIO BRAIN NECK STROKE, DATE/TIME OF EXAM: 05/14/2025 1:58 PM, LOCATION [facility] INDICATION: R53.1: Weakness ADDITIONAL CLINICAL INFORMATION: Ordering Provider Reason For Exam: Technologist Note: Additional: None. EXAMINATION: 1. Computed tomographic (CT) angiography of the head without and with contrast 2. CT angiography of the neck with contrast CONTRAST: IOPAMIDOL 76 % IV SOLN:75 mL TECHNIQUE: CT of the head was performed without contrast according to standard protocol. Then CT angiography of the head and neck was obtained after the uneventful administration of 75 mL Isovue-370 intravenous contrast. Three dimensional postprocessing was performed by the technologist and sent to the workstation for review. Stenosis measurements are based on NASCET criteria. CT dose reduction technique was used, including Automated Exposure Control. COMPARISON: Concurrent CT brain stroke FINDINGS: Non-angiographic findings: Please refer to separately dictated CT brain stroke report for non-angiographic findings an acute intraparenchymal hemorrhage measuring approximately centered in the right thalamus with surrounding hypoattenuating edema and intraventricular extension. Centrilobular emphysematous changes of bilateral visible part of the lungs. Heterogeneous appearance of left thyroid gland likely due to hypoattenuating nodules. Partially visualized right internal jugular approach central venous catheter is in place. Partially visualized dilatation of main pulmonary artery trunk which can be seen in the setting of pulmonary hypertension. Postoperative changes of anterior cervical discectomy and fusion at C4-C7. Degenerative changes of cervical spine. Angiographic findings: There is atherosclerotic disease of the aortic arch. The configuration of the brachiocephalic vessels is typical. There is atherosclerotic calcification of the innominate and subclavian arteries. There is atherosclerotic disease of the right carotid bifurcation and origin of the right internal carotid artery with less than 50 percent focal stenosis by NASCET criteria. The right common and internal carotid arteries otherwise appear normal. There is atherosclerotic disease of the left carotid bifurcation and origin of the left internal carotid artery without focal stenosis. The left common and internal carotid arteries otherwise appear normal. Other than mild focal stenosis at their origins due to atherosclerotic disease, the cervical vertebral arteries appear normal. There is atherosclerotic disease involving the distal internal carotid arteries without significant focal stenosis. 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 Otherwise the anterior and middle cerebral arteries appear normal. The distal vertebral arteries appear normal. The basilar artery and posterior cerebral arteries appear normal. Otherwise no aneurysms, vascular occlusions, or intracranial stenoses are identified. Procedure Note Pedro Neville MD - 05/14/2025 PROCEDURE: CT ANGIO BRAIN NECK STROKE, DATE/TIME OF EXAM: :58 PM, LOCATION [facility] INDICATION: R53.1: Weakness ADDITIONAL CLINICAL INFORMATION: Ordering Provider Reason For Exam: Technologist Note: Additional: None. EXAMINATION: 1. Computed tomographic (CT) angiography of the head without and with contrast 2. CT angiography of the neck with contrast CONTRAST: IOPAMIDOL 76 % IV SOLN:75 mL TECHNIQUE: CT of the head was performed without contrast according to standard protocol. Then CT angiography of the head and neck was obtained after the uneventful administration of 75 mL Isovue-370 intravenous contrast. Three dimensional postprocessing was performed by the technologist and sent to the workstation for review. Stenosismeasurements are based on NASCET criteria. CT dose reduction technique was used, including Automated Exposure Control. COMPARISON: Concurrent CT brain stroke FINDINGS: Non-angiographic findings: Please refer to separately dictated CT brain stroke report for non-angiographic findings an acute intraparenchymal hemorrhage measuring approximately centered in the right thalamus with surrounding hypoattenuating edema and intraventricular extension. Centrilobular emphysematous changes of bilateral visible part of thelungs. Heterogeneous appearance of left thyroid gland likely due to hypoattenuating nodules. Partially visualized right internal jugular approach central venous catheter is in place. Partially visualized dilatation of main pulmonary artery trunk which can be seen in thesetting of pulmonary hypertension. Postoperative changes of anterior cervical discectomy and fusion at C4-C7. Degenerative changes of cervical spine. Angiographic findings: There is atherosclerotic disease of the aortic arch. The configurationof the brachiocephalic vessels is typical. There is atherosclerotic calcification of the innominate and subclavian arteries. There is atherosclerotic disease of the right carotid bifurcation and origin ofthe right internal carotid artery with less than 50 percent focal stenosisby NASCET criteria. The right common and internal carotid arteriesotherwise appear normal. There is atherosclerotic disease of the left carotid bifurcation and origin of the left internal carotid artery without focal stenosis. The left common and internal carotid arteries otherwise appear normal. Other than mild focal stenosis at their origins due to atherosclerotic disease, the cervical vertebral arteries appear normal. There is atherosclerotic disease involving the distal internal carotid arteries without significant focal stenosis. There is a 2.6 x 2.6 x 2.7mm aneurysm in the superior aspect of distal M1 segment of left MCA (series6 image 113 and series 9 image 40). Otherwise the anterior and middle cerebral arteries appear normal. The distal vertebral arteries appear normal. The basilar artery and posterior cerebral arteries appearnormal. Otherwise no aneurysms, vascular occlusions, or intracranial stenosesare identified. IMPRESSION: 1.Please refer to separately dictated CT brain stroke report for non-angiographic findings an acute intraparenchymal hemorrhage measuring approximately centered in the right thalamus with surrounding hypoattenuating edema and intraventricular extension. 2.A 2.6 x 2.6 x 2.7 mm aneurysm in the superior aspect of distal [id number] of left MCA. 3.No large arterial occlusions or significant stenoses identified in the head or neck. Viz.AI was used for large vessel occlusion detection. The report was drafted by Jc Jesus MD (residential sales consultant). > Dictated by Jc Jesus MD 05/14/2025 2:30 PM > Dictated by Factory Engineer I, Pedro Neville MD have personally reviewed and interpreted this examination/study. > Interpreting Provider: Pedro Neville MD on 05/14/2025 3:25 PM Misha Wagner MD CT ORDERABLES Final Result * EKG 12-LEAD (05/14/2025 1:53 PM CDT) Pathologist [facility] Ventricular Rate 72 BPM [facility]USE Atrial Rate 72 BPM [facility] P-R Interval 170 ms [facility] QRS Duration ms 84 ms [facility] Q-T Interval ms 422 ms [facility] QTC Calculation (Bezet) 462 ms [facility] Calculated P [place] 69 degrees [facility] Calculated R [place] 10 degrees [facility] Calculated T [place] 57 degrees [facility] Interpretation EKG NORMAL SINUS RHYTHM NORMAL ECG WHEN COMPARED WITH ECG OF 25-FEB-2025 17:10, NO SIGNIFICANT CHANGE WAS FOUND Confirmed by JAGDISH FALCON, ADAN ([id number]) on 05/18/2025 7:31:54 PM [facility] 05/14/2025 1:53 PM CDT 05/18/2025 7:31 PM CDT Misha Wagner MD ECG ORDERABLES Edited Resul t - Final [facility] * (ABNORMAL) TROPONIN-I HIGH SENSITIVE (05/14/2025 1:49 PM CDT) [facility] Troponin I High Sensitive 20(H) <=14 ng/L 05/14/2025 2:28 PM [facility] Blood BLOOD SPECIMEN / Unknown Venipuncture / Unknown 05/14/2025 1:49 PM CDT 05/14/2025 1:55 PM CDT Misha Wagner MD LAB - CHEMISTRY ORDERABLES F inal Result [facility] [address] [place] [address], [facility] [phone] * (ABNORMAL) COMPREHENSIVE METABOLIC PANEL (05/14/2025 1:49 PM CDT) [facility] BUN 57(H) 7 - 26 mg/dL 05/14/2025 2:25 PM [facility] Creatinine 6.52(H) 0.56 - 0.96 mg/dL 05/14/2025 2:25 PM [facility] Sodium 138 136 - 145 mmol/L 05/14/2025 2:25 PM [facility] Potassium 4.0 3.5 - 4.5 mmol/L 05/14/2025 2:25 PM [facility] Chloride 103 98 - 107 mmol/L 05/14/2025 2:25 PM [facility] CO2 23 22 - 29 mmol/L 05/14/2025 2:25 PM [facility] Glucose 100(H) 70 - 99 mg/dL 05/14/2025 2:25 PM [facility] Calcium 9.3 8.4 - 10.2 mg/dL 05/14/2025 2:25 PM [facility] Protein Total 7.0 6.0 - 8.3 g/dL 05/14/2025 2:25 PM [facility] Albumin 4.1 3.4 - 5.0 g/dL 05/14/2025 2:25 PM [facility] Bilirubin Total 0.3 0.2 - 1.2 mg/dL 05/14/2025 2:25 PM [facility] Alkaline Phosphatase 96 40 - 150 U/L 05/14/2025 2:25 PM CDT [facility] ALT 13 5 - 55 U/L 05/14/2025 2:25 PM [facility] AST 25 5 - 34 U/L 05/14/2025 2:25 PM [facility] Anion Gap 12 6 - 16 05/14/2025 2:25 PM T [facility] BUN/Creatinine Ratio 9 7 - 23 05/14/2025 2:25 PM T [facility] Osmolality Calculated 302(H) 275 - 295 mOsm/kg 05/14/2025 2:25 PM T [facility] Albumin/Globulin Ratio 1.4 1.1 - 2.3 05/14/2025 2:25 PM [facility] eGFR by CKD-EPI 6(L) >=90 mL/min/1.7 3 m2 05/14/2025 2:25 PM [facility] Comment:Estimated Glomerular Filtration Rate (eGFR) calculated using the CKD-EPI Creatinine Equation (2020), per the National Kidney Foundation and [place] [employer] recommendations. Blood BLOOD SPECIMEN / Unknown Venipuncture / Unknown 05/14/2025 1:49 PM CDT 05/14/2025 1:55 PM CDT Misha Wagner MD LAB - CHEMISTRY ORDERABLES F inal Result [address] [address], [facility] [phone] * (ABNORMAL) INR WHOLE BLOOD - POINT OF CARE (IP) STROKE (05/14/2025 1:32 PM CDT) INR <0.9(L) 0.9 - 1.2 05/14/2025 2:55 PM CDT [facility] Device [id number] 05/14/2025 2:55 PM CDT [facility] Photocomposing Machine Operator ID [id number] 05/14/2025 2:55 PM CDT [facility] Blood BLOOD SPECIMEN / Unknown 05/14/2025 1:32 PM CDT 05/14/2025 2:55 PM CDT us Provider Unknown LAB - POINT OF CARE ORDERABLES Final Result [facility] [place] [id number] [place] [address], [facility] [phone] * CT BRAIN - Stroke (05/14/2025 1:28 PM CDT) Anatomical Region Laterality Modality Head Computed Tomogra phy 05/14/2025 2:15 PM CDT Impressions 05/14/2025 3:16 PM CDT IMPRESSION: 1.An acute intraparenchymal hemorrhage measuring approximately 2.5 x 3 x 3.2 cm centered in the right thalamus with intraventricular extension and moderate surrounding vasogenic edema. There is resultant mass effect on the surrounding structures causing mild compression of the atrium of right lateral ventricle. No significant midline shift. 2.There is enlargement of bilateral lateral ventricles (Garnett index: 0.37) and hypoattenuation of periventricular white matter, which is concerning for hydrocephalus. These findings were discussed in detail with the patient's care provider, Dr. Escalera by Dr. Jc Jesus via telephone at 1:31 PM on 05/14/2025 with readback comprehension and verification. The report was drafted by Jc Jesus MD (residential sales consultant). > Dictated by Jc Jesus MD 05/14/2025 2:15 PM > Dictated by Factory Engineer I, Pedro Neville MD have personally reviewed and interpreted this examination/study. > Interpreting Provider: Pedro Neville MD on 05/14/2025 3:16 PM Narrative 05/14/2025 3:16 PM CDT PROCEDURE: CT BRAIN STROKE, DATE/TIME OF EXAM: 05/14/2025 1:29 PM, LOCATION [facility] INDICATION: R53.1: Weakness ADDITIONAL CLINICAL INFORMATION: Ordering Provider Reason For Exam: Technologist Note: Additional: TECHNIQUE: CT of the head was performed without contrast according to standard protocol. COMPARISON: CT head without contrast from 06/10/2019. FINDINGS: There is an acute intraparenchymal hemorrhage measuring approximately 2.5 x 3 x 3.2 cm (series 3 image 17, series 6 image 48) centered in the right thalamus with surrounding hypoattenuating edema. There is resultant mass effect on the surrounding structures causing mild compression of the atrium of right lateral ventricle. No significant midline shift. There is intraventricular extension of the hemorrhage right greater than left in the posterior horns of bilateral lateral ventricles. There is enlargement of bilateral lateral ventricles and hypoattenuation of periventricular white matter, which is concerning for early hydrocephalus. There is mild cerebral volume loss. The basal cisterns are patent. 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 The lee-white matter differentiation otherwise appears normal. Periventricular white matter hypoattenuation is a nonspecific finding that may be indicative of chronic small vessel ischemic disease. There is atherosclerotic calcification of the carotid siphons. Other than bilateral cataract extractions, the visualized portions of the orbits, paranasal sinuses, and mastoids appear normal. No acute calvarial fracture is identified. Procedure Note Pedro Neville MD - 05/14/2025 PROCEDURE: CT BRAIN STROKE, DATE/TIME OF EXAM: 05/14/2025 1:29 PM, LOCATION [facility] INDICATION: R53.1: Weakness ADDITIONAL CLINICAL INFORMATION: Ordering Provider Reason For Exam: Technologist Note: Additional: TECHNIQUE: CT of the head was performed without contrast according to standard protocol. COMPARISON: CT head without contrast from 06/10/2019. FINDINGS: There is an acute intraparenchymal hemorrhage measuring approximately 2.5x 3 x 3.2 cm (series 3 image 17, series 6 image 48) centered in the right thalamus with surrounding hypoattenuating edema. There is resultant mass effect on the surrounding structures causing mild compression of theatrium of right lateral ventricle. No significant midline shift. There is intraventricular extension of the hemorrhage right greater than left in the posterior horns of bilateral lateral ventricles. There is enlargement of bilateral lateral ventricles and hypoattenuationof periventricular white matter, which is concerning for earlyhydrocephalus. There is mild cerebral volume loss. The basal cisterns are patent. 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 The lee-white matter differentiation otherwise appears normal. Periventricular white matter hypoattenuation is a nonspecific findingthat may be indicative of chronic small vessel ischemic disease. There is atherosclerotic calcification of the carotid siphons. Other than bilateral cataract extractions, the visualized portions ofthe orbits, paranasal sinuses, and mastoids appear normal. No acute calvarial fracture is identified. IMPRESSION: 1.An acute intraparenchymal hemorrhage measuring approximately 2.5 x 3 x 3.2 cm centered in the right thalamus with intraventricular extensionand moderate surrounding vasogenic edema. There is resultant mass effect onthe surrounding structures causing mild compression of the atrium of right lateral ventricle. No significant midline shift. 2.There is enlargement of bilateral lateral ventricles (Garnett index:0.37) and hypoattenuation of periventricular white matter, which is concerning for hydrocephalus. These findings were discussed in detail with the patient's careprovider, Dr. Escalera by Dr. Jc Jesus via telephone at 1:31 PM on05/14/2025 with readback comprehension and verification. The report was drafted by Jc Jesus MD (residential sales consultant). > Dictated by Jc Jesus MD 05/14/2025 2:15 PM > Dictated by Factory Engineer I, Pedro Neville MD have personally reviewed and interpreted this examination/study. > Interpreting Provider: Pedro Neville MD on 05/14/2025 3:16 PM Misha Wagner MD CT ORDERABLES Final Result * XR Pelvis W Right Hip 2Vw (03/27/2025 12:19 PM CDT) Anatomical Region Laterality Modality Pelvis Radiographic Sandy ging 03/27/2025 12:2 8 PM CDT Impressions 03/27/2025 12:28 PM CDT IMPRESSION: Reduced and internally fixed proximal right femur fracture. > Interpreting Provider: Desi Ji MD on 03/27/2025 12:28 PM Narrative 03/27/2025 12:28 PM CDT PROCEDURE: XR PELVIS W RIGHT HIP 2VW DATE/TIME OF EXAM: 03/27/2025 12:20 PM CLINICAL INFORMATION: None relevant/not provided if blank. Indication: S72.001A: Closed fracture of neck of right femur, initial encounter ([facility]) Additional History: COMPARISON: 02/23/2025 FINDINGS: There is been interval internal fixation in the previously seen proximal right femoral subcapital fracture. Alignment is normal. Joint spaces are normal. There are degenerative changes in the lower lumbar spine. Procedure Note Desi Ji MD - 03/27/2025 PROCEDURE: XR PELVIS W RIGHT HIP 2VW DATE/TIME OF EXAM: 03/27/2025 12:20 PM CLINICAL INFORMATION: None relevant/not provided if blank. Indication: S72.001A: Closed fracture of neck of right femur, initial encounter ([facility]) Additional History: COMPARISON: 02/23/2025 FINDINGS: There is been interval internal fixation in the previouslyseen proximal right femoral subcapital fracture. Alignment is normal. Joint spaces are normal. There are degenerative changes in the lower lumbar spine. IMPRESSION: Reduced and internally fixed proximal right femur fracture. > Interpreting Provider: Desi Ji MD on 03/27/2025 12:28 PM Humberto Carlton MD DIAGNOSTIC IMAGING ORDERABL ES Final Result * XR Sacrum And Coccyx (03/27/2025 12:19 PM CDT) Anatomical Region Laterality Modality Spine Radiographic Sandy ging 03/27/2025 12:2 9 PM CDT Impressions 03/27/2025 12:31 PM CDT IMPRESSION: 1. Findings concerning for transverse fracture of S5. 2. Posterior displacement at the tip of the coccyx, new from prior. Overall, cross-sectional imaging would better assess. > Interpreting Provider: Desi Ji MD on 03/27/2025 12:31 PM Narrative 03/27/2025 12:31 PM CDT PROCEDURE: XR SACRUM AND COCCYX DATE/TIME OF EXAM: 03/27/2025 12:20 PM CLINICAL INFORMATION: None relevant/not provided if blank. Indication: M53.3: Sacral back pain Additional History: COMPARISON: 02/23/[address] from 12/11/2024 FINDINGS: There is severe disc space narrowing at L5-S1. On the lateral view there is offset of the anterior cortex of the superior aspect of S5, concerning for fracture. The second site segment of the coccyx is posteriorly displaced, increased from prior. Procedure Note Desi Ji MD - 03/27/2025 PROCEDURE: XR SACRUM AND COCCYX DATE/TIME OF EXAM: 03/27/2025 12:20 PM CLINICAL INFORMATION: None relevant/not provided if blank. Indication: M53.3: Sacral back pain Additional History: COMPARISON: 02/23/[address] from 12/11/2024 FINDINGS: There is severe disc space narrowing at L5-S1. On the lateral view thereis offset of the anterior cortex of the superior aspect of S5, concerningfor fracture. The second site segment of the coccyx is posteriorlydisplaced, increased from prior. IMPRESSION: 1. Findings concerning for transverse fracture of S5. 2. Posterior displacement at the tip of the coccyx, new from prior. Overall, cross-sectional imaging would better assess. > Interpreting Provider: Desi Ji MD on 03/27/2025 12:31 PM Humberto Carlton MD DIAGNOSTIC IMAGING ORDERABL ES Final Result * Dexa Bone Density Axial Skeleton (01/29/2025 11:37 AM CDT) Anatomical Region Laterality Modality Nuclear Medicine 01/29/2025 12:1 9 PM CDT Impressions 01/29/2025 12:20 PM CDT IMPRESSION: WHO category: Osteopenia WORLD HEALTH ORGANIZATION DEFINITIONS NORMAL= T-Score at or above -1.0 SD OSTEOPENIA = T-Score between -1 and -2.5 SD OSTEOPOROSIS = T-Score at or below -2.5 SD > Interpreting Provider: Luz Cummings DO on 01/29/2025 12:20 PM Narrative 01/29/2025 12:20 PM CDT PROCEDURE: DEXA BONE DENSITY AXIAL SKELETON DATE/TIME OF EXAM: 01/29/2025 11:37 AM CLINICAL INFORMATION: None relevant/not provided if blank. Indication: M81.0: Age-related osteoporosis without current pathological fracture COMPARISON: DEXA dated 07/06/2019 INDICATION: 79 years-old for osteoporosis screening. FINDINGS: The mean bone mineral content of the lumbar spine is 1.597 g/cm2 and T-score is 3.5. The mean bone mineral content of the left femoral neck is 0.768 g/cm2 and T-score is -1.9. The mean bone mineral content of the left total hip is 0.880 g/cm2 and T-score is -1.0. The mean bone mineral content of the right femoral neck is 0.736 g/cm2 and T-score is -2.2. The mean bone mineral content of the right total hip is 0.922 g/cm2 and T-score is -0.7. FRAX 10 year fracture risk Major osteoporotic fracture: 24.3% Hip fracture: 10.6% In comparison to prior exam, there is worsening of the lumbar spine and hips. Procedure Note Luz Cummings DO - 01/29/2025 PROCEDURE: DEXA BONE DENSITY AXIAL SKELETON DATE/TIME OF EXAM: 01/29/2025 11:37 AM CLINICAL INFORMATION: None relevant/not provided if blank. Indication: M81.0: Age-related osteoporosis without current pathological fracture COMPARISON: DEXA dated 07/06/2019 INDICATION: 79 years-old for osteoporosis screening. FINDINGS: The mean bone mineral content of the lumbar spine is 1.597 g/cm2 and T-score is 3.5. The mean bone mineral content of the left femoral neck is 0.768 g/cm2and T-score is -1.9. The mean bone mineral content of the left total hip is 0.880 g/cm2 and T-score is -1.0. The mean bone mineral content of the right femoral neck is 0.736 g/cm2and T-score is -2.2. The mean bone mineral content of the right total hip is 0.922 g/cm2 and T-score is -0.7. FRAX 10 year fracture risk Major osteoporotic fracture: 24.3% Hip fracture: 10.6% In comparison to prior exam, there is worsening of the lumbar spine and hips. IMPRESSION: WHO category: Osteopenia WORLD HEALTH ORGANIZATION DEFINITIONS NORMAL= T-Score at or above -1.0 SD OSTEOPENIA = T-Score between -1 and -2.5 SD OSTEOPOROSIS = T-Score at or below -2.5 SD > Interpreting Provider: Luz Cummings DO on 01/29/2025 12:20 PM Tana Wagner MD DEXA ORDERABLES Final Result * CT LUNG SCREEN LOW DOSE (12/16/2023 1:06 PM CDT) Anatomical Region Laterality Modality Chest Computed Tomogra phy 12/16/2023 1:09 PM CDT Impressions 12/16/2023 1:42 PM CDT Impression: 1.No acute process or suspicious pulmonary nodules identified in the chest. Lung-RADS category 1. Follow-up would a CT chest in one year is recommended. 2.Partial visualization of a 4.5 x 3.7 cm. cm infrarenal abdominal aortic aneurysm that appears enlarged compared to prior ultrasound dated 12/03/2020.) Angiogram protocol CT abdomen and pelvis could be obtained for further characterization. 3.Triple-vessel coronary artery disease 4.Enlargement of the pulmonary trunk measuring 3.8 cm, may be secondary to pulmonary hypertension. Category 0 (incomplete) prior CT studies were performed, but are not available for comparison lungs are incompletely imaged Recommended follow up -comparison with prior studies before assignment of Lung-RADS classification Category 1 (negative, <1% chance of malignancy) no lung nodules lung nodule(s) with specific findings favouring benign nodule(s) complete calcification central calcification popcorn calcification calcification in concentric rings fat-containing nodules Recommended follow up -continue annual screening with LDCT Category 2 (benign appearance, <1% chance of malignancy) solid nodule(s) <6 mm new nodule <4 mm subsolid nodule(s) <6 mm on baseline screening ground glass nodule(s) <20 mm >=20 mm and unchanged or slowly growing category 3 or 4 nodules that are unchanged for >=3 months Recommended follow up -continue annual screening with LDCT Category 3 (probably benign, 1-2% chance of malignancy) solid nodule(s) >=6 mm to <8 mm at baseline new nodule 4 mm to <6 mm subsolid nodule(s) >=6 mm total diameter with solid component <6 mm new <6 mm total diameter ground glass nodule(s) >=[address] or new Recommended follow up -6 month follow up with LDCT Category 4A (suspicious, 5-15% chance of malignancy) solid nodule(s) >=8 mm to <15 mm at baseline growing nodule(s) <8 mm new nodule 6 mm to <8 mm subsolid nodule(s) >=6 mm total diameter with solid component >=6 mm to <8 mm new or growing <4 mm solid component endobronchial nodule Recommended follow up -3 month follow up with LDCT -PET/CT may be used if there is a >=8 mm solid component Category 4B (suspicious, >15% chance of malignancy) solid nodule(s) >=15 mm new or growing, and >=8 mm subsolid nodule(s) solid component >=8 mm new or growing >=4 mm solid component Recommended follow up -3 month follow up with LDCT -PET/CT may be used if there is a >=8 mm solid component Category 4X (suspicious, >15% chance of malignancy) category 3 or 4 nodules with additional features or imaging findings that increases the suspicion of malignancy includes: spiculation ground glass nodule(s) that double in size in 1 year enlarged regional lymph nodes Recommended follow up -3 month follow up with LDCT -PET/CT may be used if there is a >=8 mm solid component Category 5 Malignant Recommended follow up -chest CT with or without contrast, as appropriate -PET/CT and/or tissue sampling depending on the probability of malignancy and comorbidities (PET/CT if solid component >=8 mm) Modified categories [X'S (e.g. 3S) if there is a clinically significant or potentially significant non-lung cancer finding [X'C (e.g. 3C) for a patient with a prior diagnosis of lung cancer who returns to screening Recommended follow up Category 5: chest CT with or without contrast, as appropriate PET/CT and/or tissue sampling depending on the probability of malignancy and comorbidities (PET/CT if solid component >=8 mm) Practical points nodule measurement should be in lung windows nodule average diameter is rounded to the nearest whole number only a single measurement is necessary for round nodules growth is an increase in size of >=1.5 mm assignment of a Lung-RADS status is based on the most suspicious nodule category 4B management is based on multiple factors including overall patient status and patient preference > Dictated by Marycarmen Gleason Dr, MD (regional vice president surgical sales). > Dictated by Marycarmen Gleason Dr (Factory Engineer) 12/16/2023 1:09 PM IAbdirashid MD have personally reviewed and interpreted this examination/study. > Interpreting Provider: Abdirashid Lindo MD on 12/16/2023 1:42 PM Narrative 12/16/2023 1:42 PM CDT PROCEDURE: CT LUNG SCREEN LOW DOSE, DATE/TIME OF EXAM: 12/16/2023 1:07 PM, LOCATION [facility] INDICATION: Z12.2: Screening for lung cancer ADDITIONAL CLINICAL INFORMATION: Ordering Provider Reason For Exam: Technologist Note: Additional: COMPARISON: CT Chest dated 07/14/2019. TECHNIQUE: CT of the chest was performed without contrast according to standard protocol. Findings: Evaluation of visceral and vascular structures is degraded due to lack of intravenous contrast administration. Lower Neck and Axillae: Normal. Lungs: Centrilobular emphysema. Subsegmental atelectasis versus scarring at the inferior aspect of the right lower lobe. No suspicious pulmonary nodules are identified. The previously seen nodule within the right lower lobe is no longer visualized. No pleural fluid or pneumothorax is present. Heart and Pericardium: The cardiac chambers are normal in size. No pericardial fluid or thickening is present. Triple-vessel coronary artery disease. Calcification of the aortic valve. Mediastinum and Amelie: No enlarged lymph nodes are present. Thoracic Vasculature: Enlargement of the pulmonary trunk measuring 3.8 cm. Atherosclerotic calcification of the aorta and branching vessels. Bones and Chest Wall: Bone windows demonstrate no suspicious lytic or blastic lesions. The visible osseous structures are intact. Moderate degenerative changes throughout the spine. Anterior cervical spine fusion hardware is partially visualized. Upper Abdomen: Status post cholecystectomy. Partially visualized infrarenal abdominal aortic aneurysm measuring 4.5 x 3.7 cm. The right kidney appears atrophic. Procedure Note Abdirashid Lindo MD - 12/16/2023 PROCEDURE: CT LUNG SCREEN LOW DOSE, DATE/TIME OF EXAM: 12/16/2023 1:07PM, LOCATION [facility] INDICATION: Z12.2: Screening for lung cancer ADDITIONAL CLINICAL INFORMATION: Ordering Provider Reason For Exam: Technologist Note: Additional: COMPARISON: CT Chest dated 07/14/2019. TECHNIQUE: CT of the chest was performed without contrast according to standard protocol. Findings: Evaluation of visceral and vascular structures is degraded due to lackof intravenous contrast administration. Lower Neck and Axillae: Normal. Lungs: Centrilobular emphysema. Subsegmental atelectasis versus scarring at the inferior aspect of the right lower lobe. No suspicious pulmonary nodules are identified. The previously seen nodule within the right lower lobeis no longer visualized. No pleural fluid or pneumothorax is present. Heart and Pericardium: The cardiac chambers are normal in size. No pericardial fluid orthickening is present. Triple-vessel coronary artery disease. Calcification of the aortic valve. Mediastinum and Amelie: No enlarged lymph nodes are present. Thoracic Vasculature: Enlargement of the pulmonary trunk measuring 3.8 cm. Atherosclerotic calcification of the aorta and branching vessels. Bones and Chest Wall: Bone windows demonstrate no suspicious lytic or blastic lesions. The visible osseous structures are intact. Moderate degenerative changes throughout the spine. Anterior cervical spine fusion hardware ispartially visualized. Upper Abdomen: Status post cholecystectomy. Partially visualized infrarenal abdominal aortic aneurysm measuring 4.5 x 3.7 cm. The right kidney appearsatrophic. Impression: 1.No acute process or suspicious pulmonary nodules identified in thechest. Lung-RADS category 1. Follow-up would a CT chest in one year is recommended. 2.Partial visualization of a 4.5 x 3.7 cm. cm infrarenal abdominalaortic aneurysm that appears enlarged compared to prior ultrasound dated 12/03/2020.) Angiogram protocol CT abdomen and pelvis could be obtainedfor further characterization. 3.Triple-vessel coronary artery disease 4.Enlargement of the pulmonary trunk measuring 3.8 cm, may be secondaryto pulmonary hypertension. Category 0 (incomplete) prior CT studies were performed, but are not available for comparison lungs are incompletely imaged Recommended follow up -comparison with prior studies before assignment of Lung-RADS classification Category 1 (negative, <1% chance of malignancy) no lung nodules lung nodule(s) with specific findings favouring benign nodule(s) complete calcification central calcification popcorn calcification calcification in concentric rings fat-containing nodules Recommended follow up -continue annual screening with LDCT Category 2 (benign appearance, <1% chance of malignancy) solid nodule(s) <6 mm new nodule <4 mm subsolid nodule(s) <6 mm on baseline screening ground glass nodule(s) <20 mm >=20 mm and unchanged or slowly growing category 3 or 4 nodules that are unchanged for >=3 months Recommended follow up -continue annual screening with LDCT Category 3 (probably benign, 1-2% chance of malignancy) solid nodule(s) >=6 mm to <8 mm at baseline new nodule 4 mm to <6 mm subsolid nodule(s) >=6 mm total diameter with solid component <6 mm new <6 mm total diameter ground glass nodule(s) >=[address] or new Recommended follow up -6 month follow up with LDCT Category 4A (suspicious, 5-15% chance of malignancy) solid nodule(s) >=8 mm to <15 mm at baseline growing nodule(s) <8 mm new nodule 6 mm to <8 mm subsolid nodule(s) >=6 mm total diameter with solid component >=6 mm to <8 mm new or growing <4 mm solid component endobronchial nodule Recommended follow up -3 month follow up with LDCT -PET/CT may be used if there is a >=8 mm solid component Category 4B (suspicious, >15% chance of malignancy) solid nodule(s) >=15 mm new or growing, and >=8 mm subsolid nodule(s) solid component >=8 mm new or growing >=4 mm solid component Recommended follow up -3 month follow up with LDCT -PET/CT may be used if there is a >=8 mm solid component Category 4X (suspicious, >15% chance of malignancy) category 3 or 4 nodules with additional features or imaging findings that increases the suspicion of malignancy includes: spiculation ground glass nodule(s) that double in size in 1 year enlarged regional lymph nodes Recommended follow up -3 month follow up with LDCT -PET/CT may be used if there is a >=8 mm solid component Category 5 Malignant Recommended follow up -chest CT with or without contrast, as appropriate -PET/CT and/or tissue sampling depending on the probability ofmalignancy and comorbidities (PET/CT if solid component >=8 mm) Modified categories [X'S (e.g. 3S) if there is a clinically significant or potentially significant non-lung cancer finding [X'C (e.g. 3C) for a patient with a prior diagnosis of lung cancer who returns to screening Recommended follow up Category 5: chest CT with or without contrast, as appropriate PET/CT and/or tissue sampling depending on the probability of malignancy and comorbidities (PET/CT if solid component >=8 mm) Practical points nodule measurement should be in lung windows nodule average diameter is rounded to the nearest whole number only a single measurement is necessary for round nodules growth is an increase in size of >=1.5 mm assignment of a Lung-RADS status is based on the most suspiciousnodule category 4B management is based on multiple factors includingoverall patient status and patient preference > Dictated by Marycarmen Gleason Dr, MD (regional vice president surgical sales). > Dictated by Marycarmen Gleason Dr (Factory Engineer) 12/16/2023 1:09PM IAbdirashid MD have personally reviewed and interpreted this examination/study. 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 Adv Directive/Living Will/POA 08/29/2019 3:05 PM * Full Code (Latest Code Status on File) Date Activated Date Inactivated Comments 05/14/2025 2:01 PM 05/21/2025 3:20 PM * Full Code Date Activated Date Inactivated Comments 02/24/2025 1:49 AM 02/28/2025 3:18 PM Care Teams Cone Trucker Relationship Specialty Start Date End Date Tana Wagner MD [facility] [place] [address] PCP - General Internal Medicine Geriatric Medicine 08/25/23 Hermelindo Lazar MD [address] [facility] [address] [place] [address] Obstetrics and Gynecology 01/30/19 Kasie Brown, RN Surface GrinderQuality Assurance Technician 08/16/19
--- OUTSIDE RECORDS SUMMARY | 2025-06-06 21:12 | XMS_ITS | Encounter Summary ---
Author Organization [facility] Health Address [address] [place] [address] Care Team Providers Care Gate Manager Name Role Phone Hermelindo Lazar MD Unavailable [phone] Kasie Brown RN Unavailable [phone] Ashleigh Rouse MD Primary Care Provider Odin YEUNG MD, Francis G Primary Care Provider [phone] Ashleigh Rouse MD Primary Care Provider Tana Wagner MD Primary Care Provider [phone] Encounter Details Date Type Department Care Team (Late st Contact Info) Description 10/15/2020 Telephone [facility] [address] [place] [address] Stephon Elizabeth MD [address] [place] [address] Social History Tobacco Use Types Packs/Day Years [...] 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 Since she is75 she should be seen in Geriatrics. However the first available NEW appt is November 24. Can refill her Lisinopril one more time before her November 24 appt? Please send to [facility] at [phone]. Thank you Renuka documented in this encounter Plan of Treatment Upcoming Encounters Date Type Department Care Team (Late st Contact Info) Description 07/01/2025 1:30 PM CHILDCARE PROVIDER Office Visit [facility] - Neurology [address] [place] [address], [place] [address] Liz Zelaya PA-C [address] [place] [address] [address] [place] [id number] 07/03/2025 1:00 PM CHILDCARE PROVIDER Office Visit [facility] - Orthopedic Surgery [address] [place] [address] Humberto Carlton MD [address] [facility] [address] [place] [address] documented as of this encounter Visit Diagnoses Not on filedocumented in this encounter Additional Health Concerns Infection Onset Date Last Indicated Resolved Time COVID-19 Under Investigation 06/01/2024 06/01/2024 06/01/2024 8:23 PM CDT documented as of this encounter Care Teams Gate Manager Relationship Specialty Start Date End Date Ashleigh Rouse MD [address] [place] [address] PCP - General 10/15/20 03/25/21 Kevin Newby III, MD [address] [place] [address] PCP - General 03/26/21 07/16/21 Ashleigh Rouse MD [address] [place] [address] PCP - General Internal Medicine Geriatric Medicine 07/17/21 08/24/23 Tana Wagner MD [address] [place] [address] PCP - General Internal Medicine Geriatric Medicine 08/25/23 Hermelindo Lazar MD [address] [facility] [address] [place] [address] Obstetrics and Gynecology 01/30/19 Kasie Brown, [employer]atem[employer] Shop Supervisor 08/16/19 documented as of this encounter
[2025-06-06 21:22] LABS: CRP 5.3 mg/dL (<1.0); Lipase 227 U/L (23-300)
[2025-06-06 21:30] LABS: Troponin I < 0.012 ng/mL (0.000-0.034)
[2025-06-06 21:40] LABS: INR 1.3; Prothrombin Time 15.9 Seconds (11.1-14.7)
[2025-06-06 21:41] LABS: Partial Thromboplastin Time 43.7 Seconds (22.3-36.8)
--- NOTE | 2025-06-06 23:38 | PC.NURSE ---
Pt cleaned up, clean/dry depends applied to patient. Continuing to await plans for transfer. Report given to ROCAEL Lanier.
[2025-06-07] VITALS (24 sets, daily range): BP systolic 108–143; BP diastolic 53–74; PULSE 61–75; RESP 12–18; O2SAT 90–94
--- NOTE | 2025-06-07 07:32 | PC.NURSE ---
pt told this RN you know I could right I could any second with this this RN verbalized understanding and educated pt that we are working on a transfer to [facility] and at this time waiting for a bed. pt said it isn't fast enough and you need to tell these higher ups that I'm emergent and to get me over to [facility] this RN educated pt again that we are working on the transfer
--- NOTE | 2025-06-07 09:43 | PCDIET ---
Nutrition note: MD consult for tube feeding in ED patient. PMH CVA with dysphagia, PEG tube. Came to ED from [facility]. Spoke to dietitian there. Communication with ED RN. Pt's current tube feeding regimen: Nepro bolus 240 ml QID, flush 150 ml water QID. Provides 1680 kcal, 76 g protein, 688 ml free water. 1288 ml free water total. Adequate for needs. Orders placed. Please call if follow-up needed. Pt is boarding in ED awaiting transfer. Orders placed.
[2025-06-07] MEDS: diazePAM (*CRX) 5 MG TABLET PO (09:46)
[2025-06-07] MEDS: GABAPENTIN 100 MG CAPSULE PO (09:46)
[2025-06-07] MEDS: WATER FOR IRRIGATION, STERILE 500 ML BOTTLE (09:53)
--- NOTE | 2025-06-07 11:28 | PC.NURSE ---
tube feed has started
== END 2025-06-07 13:47 | disposition short-term general hospital (02) ==
PROVIDERS: Student in an Organized Health Care Education/Training Program
DX: I71.43 Infrarenal abdominal aortic aneurysm, without rupture (principal); I69.954 Hemiplegia and hemiparesis following unspecified cerebrovascular disease affecting left non-dominant side; I12.0 Hypertensive chronic kidney disease with stage 5 chronic kidney disease or end stage renal disease; N18.5 Chronic kidney disease, stage 5; N25.0 Renal osteodystrophy; Z99.2 Dependence on renal dialysis; D63.1 Anemia in chronic kidney disease; J44.9 Chronic obstructive pulmonary disease, unspecified; G62.9 Polyneuropathy, unspecified; H35.30 Unspecified macular degeneration; Z93.1 Gastrostomy status; Z98.1 Arthrodesis status; Z90.49 Acquired absence of other specified parts of digestive tract; Z79.899 Other long term (current) drug therapy; K59.00 Constipation, unspecified; R91.8 Other nonspecific abnormal finding of lung field; R00.1 Bradycardia, unspecified
CPT/HCPCS: 36415; 70450; 71045; 71250; 71275; 74174; 80053; 81001; 83605; 83690; 84484; 85025; 85610; 85730; 86140; 93005; 99285; A9270; Q9967